=== PATIENT | male | born 1945 | race Hispanic/Latino ===

== ENCOUNTER 2018-11-11 09:46 | Observation (INO) | payer MEDICARE ==
[~2018-11-11] VITALS: Ht 172.7 cm; Wt 91.6 kg
[~2018-11-11 09:46] MED LIST: ASPIRIN CHEW81 MG PO; ATORVASTATIN CA20 MG PO; BACLOFEN10 MG PO; CLOPIDOGREL75 MG PO; CYMBALTA30 MG PO; DOXAZOSIN MESYLA2 MG PO; FUROSEMIDE40 MG PO; GABAPENTIN300 MG PO; METOPROLOL TART25 MG PO; POTASSIUM CHLO10 ME1 PO; SINEMET 25-1001 EACH PO
--- OUTSIDE RECORDS SUMMARY | 2018-11-11 09:48 | XMS REPORT ---
Author Author [facility] Address Unknown Phone Unavailable Care Team Providers Care [facility] Sharpshooter Name Role Phone JAMARCUS ORDOÑEZ Unavailable Unavailable Problems This patient has no known problems. Allergies, Adverse Reactions, Alerts This patient has no known allergies or adverse reactions. Medications This patient has no known medications. Results Test Description Test Time Test Comments Text Results Atomic Results Result Comments Stress Test - Treadmill ONLY [address] [address] Patient Name : RAFAEL MCCARTHY MR #: [id number] : 1945 Age/Sex: 71/M Adm Physician : JAMARCUS ORDOÑEZ MD Admit Date : 08/09/17 Location : MED/SURG Room/Bed : [facility] REPORT: Cardiology Report DATE OF STUDY: August 10, 2017 REFERRING PHYSICIAN: Dr. Jamarcus Ordoñez. LEXISCAN STRESS TEST PROCEDURE INDICATIONS: Chest pain. PROCEDURE SUMMARY: Resting Data: Heart rate is 79. Blood pressure 128/73. Resting EKG normal sinus rhythm, poor R-wave progression in precordial leads, left axis deviation. Stress Data: After Lexiscan was administered, heart rate w[place] to a peak of 118 beats per minute. Blood pressure decreased to 123/50. There were no significant ST changes or arrhythmias throughout stress or recovery. Myocardial perfusion reveals normal rest and stress perfusion. GATED images demonstrated hyperdynamic left ventricular systolic function. Normal regional wall motion. Left ventricular ejection fraction more than 70%. CONCLUSION 1. Normal hemodynamic response to Lexiscan stress. 2. Normal electrocardiographic resp onse to Lexiscan stress. 3. Normal myocardial perfusion at rest and stress. 4. Preserved hyperdynamic left ventricular systolic function with normal regional wall motion with left ventricular ejection fraction more than 70%. Job#: [id number] Signature Date Dictated By: TIAN BARNES MD Transcribed By: EDS on 08/10/17 <Electronically signed by TIAN BARNES MD><<Signature on File>>08/15/17 0919 COPY TO: CHEST SINGLE (PORTABLE) [place] [address] Patient Name: RAFAEL MCCARTHY MR #: [id number] : 1945 Age/Sex: 71/M Req #: [id number] Adm Physician: Ordered by: TIFFANIE CASEY MD Report #: [id number] Location: ER Room/Bed: Procedure: [id number] DX/CHEST SINGLE (PORTABLE) Exam Date: 08/09/17 Exam Time: 1005 REPORT STATUS: Signed PROCEDURE: A single AP view of the chest. COMPARISON: None. INDICATIONS: SHORTNESS OF BREATH. SUBSTERNAL CHEST PAIN/TIGHTNESS FINDINGS: Lines/tubes: None. Lungs: The lungs are well inflated and clear. There is no evidence of pneumonia or pulmonary edema. Pleura: There is no pleural effusion or pneumothorax. Heart and mediastinum: The heart and the mediastinum are unremarkable. Bones: No acute bony abnormality. Degenerative changes of the thoracic spine. IMPRESSION: No acute radiographic abnormality. Dictated by: Sarah Quarles M.D. on 08/09/2017 at 11:01 Electronically approved by: Sarah Quarles M.D. on 08/09/2017 at 11:01 Dictated By: SARAH QUARLES MD 00 Transcribed By: RODRIGO on 08/09/171100 COPY TO: TIFFANIE CASEY MD
[2018-11-11 10:30] LABS: INR 0.87; PROTHROMBIN TIME 12.7 seconds (11.9-14.5)
[2018-11-11 10:31] LABS: PARTIAL THROMBOPLASTIN TIME 22.4 seconds (23.8-35.5)
[2018-11-11 10:39] LABS: BILIRUBIN,URINE NEGATIVE (NEGATIVE); CLARITY,URINE CLEAR (CLEAR); COLOR,URINE YELLOW (YELLOW); KETONES,URINE NEGATIVE (NEGATIVE); LEUKOCYTE ESTERASE ,URINE NEGATIVE (NEGATIVE); NITRITE,URINE NEGATIVE (NEGATIVE); PROTEIN,URINE DIPSTICK NEGATIVE (NEGATIVE); URINE UROBILINOGEN 0.2 mg/dL (0.2 - 1)
[2018-11-11 10:41] LABS: ALBUMIN 3.8 g/dL (3.5-5.0); ALBUMIN/GLOBULIN RATIO 1.6 (0.8-2.0); ANION GAP 13.2 mmol/L (8-16); CALCIUM 8.8 mg/dL (8.4-10.2); CREATININE, SERUM 1.27 mg/dL (0.72-1.25); MAGNESIUM 2.6 MG/DL (1.3-2.1); POTASSIUM 4.2 mmol/L (3.5-5.1)
[2018-11-11 10:47] LABS: CREATINE KINASE MB 1.9 ng/mL (0-5.0)
--- NOTE | 2018-11-11 11:06 | Diagnostic Imaging Report ---
Examination: Single AP view of the chest. COMPARISON: Portable chest 08/09/2017 INDICATION: Syncope IMPRESSION: 1. Lines and Tubes: None 2. Lungs are hypoinflated. Patchy opacities in the retrocardiac region likely reflect atelectasis or aspiration. No consolidation. No pleural effusion.. 3. Prominent cardiac silhouette and central pulmonary venous crowding, likely due to low lung volumes. 4. No acute bony abnormalities. Signed by: Dr. Nick Soto M.D. on 11/11/2018 11:02 AM
--- NOTE | 2018-11-11 11:19 | Diagnostic Imaging Report ---
ADDENDUM #1 Vaguely hyperdense appearance of the inferior basilar artery and of a superficial left parietal vein is presumed to be artifactual. Coarse atherosclerotic calcifications are seen in the carotid siphons and intradural segments of the vertebral arteries. Nonemergent evaluation of the cervical and intracranial circulation is recommended if there is further need for imaging. Final report on 11/11/2018 at 1337 hours. Signed by: Dr. Oli Wilder M.D. on 11/11/2018 1:38 PM ORIGINAL REPORT Head CT without contrast History: 73-year-old male with syncopal episode at table, no trauma Comparison studies: None Technique: Axial images were obtained from the skull base to the vertex. Coronal and sagittal reconstructions obtained from the axial data. Dose modulation, iterative reconstruction, and/or weight based adjustment of the mA/kV was utilized to reduce the radiation dose to as low as reasonably achievable. Findings: Scalp/skull: No abnormalities. No fractures, blastic or lytic lesions. Extra-axial spaces: No masses. No fluid collections. Brain sulci: Appropriate for age. Ventricles: Normal in size and configuration. No hydrocephalus. Parenchyma: Scattered hypodensities in the supratentorial white matter are small vessel ischemic changes. No masses, hemorrhage, acute or chronic cortical vascular insults. Sellar/suprasellar region: No abnormalities Craniocervical junction: Patent foramen magnum. No Chiari one malformation. Vasculature: Short segment hyperdensity in the proximal one third of the basilar artery (image 6, series 2 and image 29, series 400). An additional hyperdensity is in a cortical vein in the left interparietal sulcus (image 24, series 2) Calcified atherosclerotic plaque in the carotid siphons and intradural segments of the vertebral arteries. Incidental: Multiple retention cysts in the maxillary sinuses. IMPRESSION: 1. No acute abnormalities. Specifically, no mass, hemorrhage or acute territorial vascular insult. 2. Short segment hyperdensity in the proximal basilar artery is likely due to artifact. If there is concern for posterior circulation occlusion, a CTA of the head could further evaluate this finding. 3. Hyperdensity in the left intraparietal sulcus could be due to cortical vein calcification or thrombus or possibly artifact. Preliminary report dictated by Dr. Kirstie Davison, Neuroradiology Fellow. A final report by the attending radiologist will follow. Signed by: Kristie Davison MD on 11/11/2018 11:16 AM
[2018-11-11 12:01] LABS: BASOPHILS # (AUTO) 0.1 (0.0-0.1); EOSINOPHILS # (AUTO) 0.1 (0.0-0.4); EOSINOPHILS % 2.5 % (0.0-6.0); HEMATOCRIT 38.9 % (38.2-49.6); HEMOGLOBIN 12.5 g/dL (14.0-18.0); LYMPHOCYTES % 19.4 % (18.0-39.1); MEAN CORPUSCULAR HGB CONC 32.1 g/dL (31-35); MEAN CORPUSCULAR VOLUME 93.5 fL (81-99); MONOCYTES # (AUTO) 0.5 (0.2-0.8); MONOCYTES % 9.1 % (4.4-11.3); NEUTROPHILS # (AUTO) 3.6 (2.1-6.9); NEUTROPHILS % 67.6 % (38.7-80.0); PLATELET COUNT 185 x10e3/uL (140-360); RED BLOOD COUNT 4.16 x10e6/uL (4.3-5.7); RED CELL DISTRIBUTION WIDTH 13.2 % (11.7-14.4)
[2018-11-11] MEDS ORDERED: ONDANSETRON HCL INJ 2 MG/ML VIAL IV PRN (12:30)
[2018-11-11 12:35] LABS: B-TYPE NATRIURETIC PEPTIDE2 55.8 pg/mL (0-100)
--- NOTE | 2018-11-11 15:04 | NUR ---
TELEMETRY BOX #[id number] APPLIED. NO SIGNS OF ACUTE DISTRESS NOTED AT THIS TIME.
--- NOTE | 2018-11-11 15:11 | NUR ---
pt arrived via stretcher from ER accompanied by daughter and . transferred to bed safely. patient states he understands some [place] but prefers [place]. denies pain at this time. Resp even and unlabored. oriented to room and use of call light. call light placed within reach and instructed to call for assistance. and daughter remain at bedside.
[2018-11-11 15:40] VITALS: BP 162/86
[2018-11-11] MEDS ORDERED: MIRTAZAPINE15 MG PO (15:47)
[2018-11-11] MEDS ORDERED: NORCO 10-325 T1 EACH PO (15:47)
[2018-11-11] MEDS ORDERED: GABAPENTIN300 MG PO (15:49)
[2018-11-11 16:19] VITALS: BP 162/86
[2018-11-11 16:23] VITALS: BP 162/86
[2018-11-11] MEDS: GABAPENTIN 300 MG CAP PO SCH (18:34)
[2018-11-11] MEDS: PANTOPRAZOLE SOD 40 MG TABEC PO SCH (18:35)
[2018-11-11] MEDS: METOPROLOL TARTRATE 25 MG TAB PO SCH (18:35)
[2018-11-11 20:00] VITALS: BP 117/66
[2018-11-11 20:49] VITALS: BP 117/76
[2018-11-11] MEDS: DOXAZOSIN MESYLATE 2 MG TAB PO SCH (21:00)
[2018-11-11] MEDS: CARBIDOPA/LEVODOPA 25/100 TAB PO SCH (21:00)
[2018-11-11] MEDS: MIRTAZAPINE 15 MG TAB PO SCH (21:00)
[2018-11-11] MEDS: ATORVASTATIN 20 MG TAB PO SCH (21:00)
[2018-11-12] VITALS (7 sets, daily range): BP systolic 111–147; BP diastolic 67–80
--- NOTE | 2018-11-12 01:20 | Consultation ---
DATE OF CONSULTATION: November 11, 2018 CARDIOLOGY CONSULTATION REASON FOR CONSULTATION: Syncope. HISTORY OF PRESENT ILLNESS: Mr. Blanca is a 73-year-old gentleman with past medical history of hypertension, hypercholesterolemia, moderate 1-vessel CAD on heart catheterization 6 years ago; chronic lower back pain, on pain medications; Parkinson disease; as well as depression and DUSTIN. Patient has been noted by his family to intermittently doze off shortly after sitting and it occurs multiple times a day and rather sporadically. He has been experiencing severe lower lumbar back pain and has had a recent adjustment in his home narcotic medication and upped his hydrocodone from 5 mg to 10 mg daily. He was in his usual state of health up until in the morning when he was sitting a table with his and then all of a sudden, he suddenly passed out with slumping of his head down to the table top surface and quickly came back to. According to the , he was out for a total of 3 to 5 seconds, had a little bit of mumbling and speech was a bit off, but then was back to normal. He denies any loss of bowel or bladder habit and was not noted to be twitching. According to the family, another family member noted that he was a little bit off in the evening with a little bit of unusual speech. He denies any focal weakness or numbness and has chronic lower extremity pain as well as some tingling in his legs, but nothing more so than normal. In my interview today, patient dozed off twice and came back to. Family insists that he did not slam his head on the table and in terms of probing about chest pain, patient does have a history of chest pain, intermittent substernal pressure associated with belching, moderate in nature. No known exacerbating or alleviating factors. In terms of coronary artery disease, known 50% disease in one of his arteries on heart a catheterization about 6 years ago, but denies any chest pain with this episode. A very long discussion today in terms of differential diagnosis with the family at bedside. PAST MEDICAL HISTORY 1. Hypertension, essential. 2. Hypercholesterolemia. 3. Coronary artery disease, moderate, one-vessel, diagnosed on a heart cath 6 years ago. 4. Lower back pain that is chronic. He is currently on pain medications. 5. Parkinson's disease. 6. Obstructive sleep apnea. 7. Depression. FAMILY HISTORY: Mother and father in their 80s. Denies any family history of coronary artery disease. SOCIAL HISTORY: He is a lifelong nonsmoker. Denies any alcohol or illicit drug use. ALLERGIES: NO KNOWN DRUG ALLERGIES. HOME MEDICATIONS: Include aspirin 81 mg daily, atorvastatin 40 mg at bedtime, Sinemet 25/100 mg 2 tablets t.i.d., Plavix 75 mg daily, doxazosin 8 mg q.h.s., gabapentin 600 mg b.i.d., [place] 10/325 mg q.6 hours p.r.n., metoprolol 25 mg b.i.d., and mirtazapine 15 mg q.h.s. REVIEW OF SYSTEMS GENERAL: Denies any fevers, chills, or any weight changes. HEENT: No headaches, visual complaints, sore throat, or stuffy nose. RESPIRATORY: Denies any pleuritic chest pain. Has mild exertional dyspnea. CARDIOVASCULAR: Chest pain as per HPI. Passing out episode. Denies any subjective palpitations. Syncopal episode as above. GI: Denies any abdominal pain, bright red blood per rectum, melena, or hematemesis. Has occasional belching. : Denies any dysuria. Positive for urinary frequency and nocturia. MUSCULOSKELETAL: Positive for severe lower back pain, radiating down to his legs. SKIN: No rashes. NEUROLOGIC: Slightly decreased coordination and difficulty walking, kind of leg pain and has some slight leg weakness that is symmetric and does have some tremors at times due to Parkinson's disease. Remainder of review of systems is negative for otherwise mentioned. PHYSICAL EXAMINATION VITAL SIGNS: Height of 68 inches, weight of 202 pounds, BMI is 30.7, temperature of 96.7, pulse of 72, respiratory rate 18, blood pressure 162/86, and O2 sat 98% on room air. GENERAL: This is a well-nourished, well-developed gentleman, who is currently in no apparent distress, noted to be dozing off twice during my visit. HEENT: Normocephalic, atraumatic. Pupils equal, round, and reactive to light. Extraocular movements are intact. Oropharynx is clear. NECK: No elevation of jugular venous pulsation. No carotid bruits. CARDIOVASCULAR: Regular rate and rhythm. Normal S1 and S2. Soft 2/6 systolic murmur at the left lower sternal border. LUNGS: Largely clear to auscultation bilaterally. ABDOMEN: Soft, nontender, and nondistended. Normoactive bowel sounds. No hepatomegaly. BACK: No costovertebral angle tenderness. There is mild lower lumbar discomfort to palpation. EXTREMITIES: Warm with 2+ bilateral radial pulses, 1 to 2+ bilateral femoral pulses, and 1+ pedal pulses. NEUROLOGIC: Somnolent, but cranial nerves II through XII are intact. Strength is 5/5 in the upper extremities and 5-/5 in the lower extremities, but appears nonfocal, slight tremor. There is no edema. The remainder of the exam is negative for otherwise mentioned. LABS: White count 5.3, hemoglobin 12.5, hematocrit 38.9, and platelets of 185. Sodium 139, potassium 4.2, chloride 106, bicarb 24, BUN 17, creatinine 1.27, glucose of 120, and lactate 13. Calcium 8.8, magnesium 2.6, AST 23, ALT 7, alk phos 120, total protein of 6.2, albumin of 3.8, and troponin of 0.002. BNP is 55.8. INR is 0.87. UA is unremarkable. EKG reveals sinus rhythm. Left anterior fascicular block, delayed RS with transition. Brain CT reveals no acute abnormalities. There is a short segment of hyperdensity in the proximal basilar artery, likely artifact. There is questionable cortical vein calcification. Chest x-ray shows hyperinflated lungs. No acute bony abnormalities. DIAGNOSES 1. Episode of syncope with wide differential diagnosis. 2. Hypertension, essential. 3. Hypercholesterolemia. 4. Moderate coronary artery disease with chest pain. 5. Chronic low back pain, on pain medications. 6. Obstructive sleep apnea. 7. Parkinson's disease. PLAN/RECOMMENDATIONS 1. From a cardiovascular standpoint, we will go ahead and check an echocardiogram to evaluate structurally. Monitor him on telemetry and check carotid Duplex to see if there are any vascular issues in his neck. 2. We will go ahead and proceed with ischemic risk stratification with a stress test in light of chest pain symptoms. 3. We will continue antiplatelet therapy. 4. Perhaps, we will need consideration of minimizing narcotic therapy. 5. We will continue to monitor this patient. Thank you for this referral. Job#: [id number] MARILYN
[2018-11-12] MEDS: GABAPENTIN 300 MG CAP PO SCH ×2 (04:30→15:05)
[2018-11-12 05:09] LABS: BASOPHILS % 0.7 % (0.0-1.0); EOSINOPHILS # (AUTO) 0.2 (0.0-0.4); EOSINOPHILS % 2.6 % (0.0-6.0); HEMATOCRIT 38.8 % (38.2-49.6); HEMOGLOBIN 12.9 g/dL (14.0-18.0); LYMPHOCYTES # (AUTO) 1.9 (1.0-3.2); LYMPHOCYTES % 32.9 % (18.0-39.1); MEAN CORPUSCULAR HEMOGLOBIN 30.4 pg (28-32); MEAN CORPUSCULAR HGB CONC 33.2 g/dL (31-35); MEAN CORPUSCULAR VOLUME 91.3 fL (81-99); MONOCYTES # (AUTO) 0.6 (0.2-0.8); MONOCYTES % 9.5 % (4.4-11.3); NEUTROPHILS # (AUTO) 3.1 (2.1-6.9); PLATELET COUNT 188 x10e3/uL (140-360); RED BLOOD COUNT 4.25 x10e6/uL (4.3-5.7); RED CELL DISTRIBUTION WIDTH 13.4 % (11.7-14.4)
[2018-11-12 05:27] LABS: ANION GAP 12.2 mmol/L (8-16); BLOOD UREA NITROGEN 16 mg/dL (7-26); BUN/CREATININE RATIO 15 (6-25); CALCIUM 8.9 mg/dL (8.4-10.2); CARBON DIOXIDE 25 mmol/L (22-29); CHLORIDE 107 mmol/L (98-107); CHOL/HDL RATIO 2.7 (3.9-4.7); CHOLESTEROL 85 MD/DL (0-199); CREATININE, SERUM 1.04 mg/dL (0.72-1.25); EST GLOMERULAR FILTRATION RATE > 60 ML/MIN (60-); GLUCOSE 90 mg/dL (74-118); HDL CHOLESTEROL 31 MG/DL (40-60); LDL CHOLESTEROL 41 MG/DL (60-130); POTASSIUM 4.2 mmol/L (3.5-5.1); SODIUM 140 mmol/L (136-145); TRIGLYCERIDES 65 MG/DL (0-149)
[2018-11-12 05:33] LABS: MAGNESIUM 2.3 MG/DL (1.3-2.1)
[2018-11-12 05:43] LABS: CREATINE KINASE 125 IU/L (30-200)
[2018-11-12 05:59] LABS: THYROID STIMULATING HORMONE 1.899 uIU/mL (0.350-4.940)
--- NOTE | 2018-11-12 07:15 | NUR ---
received pt lying in bed with eyes closed, Resp even and unlabored. patient was awoken to remind him of NPO status due to procedures scheduled for today and verbalized understanding. denies pain at time. call light within reach. instructed to call for assistance.
[2018-11-12] MEDS: PANTOPRAZOLE SOD 40 MG TABEC PO SCH (07:30)
[2018-11-12] MEDS: METOPROLOL TARTRATE 25 MG TAB PO SCH ×2 (08:43→17:06)
[2018-11-12] MEDS: ASPIRIN 81 MG CHEW TAB PO SCH (08:43)
[2018-11-12] MEDS: CLOPIDOGREL BISULFATE 75 MG TAB PO SCH (08:44)
[2018-11-12] MEDS: CARBIDOPA/LEVODOPA 25/100 TAB PO SCH ×3 (08:44→21:01)
[2018-11-12] MEDS ORDERED: REGADENOSON 0.4 MG/5 ML SYR IV ONE (10:33)
[2018-11-12] MEDS ORDERED: SODIUM CHLORIDE 0.9% 100 ML 100 ML ONE (14:29)
[2018-11-12] MEDS ORDERED: IOPAMIDOL 370 MG/ML 200 ML INFUS..BTL INJ ONE ×2 (14:29→14:30)
[2018-11-12] MEDS: HYDROCODONE/APAP 7.5MG-325MG 1 EA TAB PO PRN (15:04)
--- NOTE | 2018-11-12 16:33 | Diagnostic Imaging Report ---
CTA NECK, CTA BRAIN HISTORY: Concern for basilar insufficiency COMPARISON: Head CT 11/11/2018 TECHNIQUE: CTA of the head and neck was performed with intravenous iodine based contrast. Coronal, sagittal, coronal, 3-D, and oblique maximum intensity projection reformations were created. One or more of the following dose reduction techniques were used: Automated exposure control, adjustment of the mA and/or kV according to patient size, and/or utilization of iterative reconstruction technique. 100 mL of Isovue-370 were administered. DISCUSSION: If present, any cervical carotid stenosis will be measured as a percentage relative to the alt[place] artery distal to the stenosis. CERVICAL CTA: There are mild calcifications in the aortic arch and proximal great vessels. Right Carotid: Mild to moderate calcified plaque at the right carotid bulb does not cause significant stenosis. Left Carotid: Mild to moderate calcified plaque at the left carotid bulb does not cause significant stenosis. Right vertebral artery: Mild calcification at the right vertebral artery ostium causes mild focal stenosis. Otherwise, patent and without abnormality. Left vertebral artery: Calcification at the left vertebral artery ostium causes moderate focal stenosis. Otherwise, patent and without abnormality. INTRACRANIAL CTA: Carotid arteries: Bilateral carotid siphon calcifications are present without significant stenosis. No abnormalities in the A1 or M1 segments. Vertebrobasilar Circulation: Right vertebral artery: Minimal right intradural vertebral artery calcification without significant stenosis. Left vertebral artery: Focal calcified plaque in the left intradural vertebral artery causes at least mild to moderate focal stenosis. Basilar artery: Patent, no abnormalities. Posterior cerebral arteries: Patent, no abnormalities. Normal Variants: ACom: Patent. PComs: Not visualized. Vertebral arteries: Co-dominant. The major dural venous sinuses are grossly patent. Additional findings: Both ocular lenses are thinned. The submandibular glands appear atrophic. There are prominent degenerative changes throughout the spine. Bilateral maxillary sinus retention cysts are present. IMPRESSION: 1. Moderate left and mild right focal vertebral artery ostia stenoses(due to calcifications). 2. Mild to moderate bilateral carotid bulb calcified plaque without significant stenosis. 3. Bilateral carotid siphon calcifications without significant stenosis. 4. Mild to moderate focal stenosis in the left vertebral artery V4 segment due to calcification. Minimal right intradural vertebral artery calcification without significant stenosis. 5. No other cervical or intracranial CTA abnormalities. Signed by: Dr. Nithin Sykes M.D. on 11/12/2018 3:29 PM
[2018-11-12] MEDS: DOXAZOSIN MESYLATE 2 MG TAB PO SCH (21:01)
[2018-11-12] MEDS: ATORVASTATIN 20 MG TAB PO SCH (21:01)
[2018-11-12] MEDS: MIRTAZAPINE 15 MG TAB PO SCH (21:01)
[2018-11-13 01:34] VITALS: BP 146/78
[2018-11-13] MEDS: GABAPENTIN 300 MG CAP PO SCH (04:52)
[2018-11-13 05:08] LABS: ANION GAP 12.1 mmol/L (8-16); BLOOD UREA NITROGEN 16 mg/dL (7-26); BUN/CREATININE RATIO 14 (6-25); CALCIUM 8.5 mg/dL (8.4-10.2); CARBON DIOXIDE 26 mmol/L (22-29); CHLORIDE 104 mmol/L (98-107); CREATININE, SERUM 1.14 mg/dL (0.72-1.25); EST GLOMERULAR FILTRATION RATE > 60 ML/MIN (60-); GLUCOSE 87 mg/dL (74-118); POTASSIUM 4.1 mmol/L (3.5-5.1); SODIUM 138 mmol/L (136-145)
[2018-11-13] MEDS: HYDROCODONE/APAP 7.5MG-325MG 1 EA TAB PO PRN (05:46)
[2018-11-13 07:05] VITALS: BP 141/66
[2018-11-13 07:09] VITALS: BP 155/79
[2018-11-13] MEDS: CLOPIDOGREL BISULFATE 75 MG TAB PO SCH (09:03)
[2018-11-13] MEDS: PANTOPRAZOLE SOD 40 MG TABEC PO SCH (09:03)
[2018-11-13] MEDS: ASPIRIN 81 MG CHEW TAB PO SCH (09:03)
[2018-11-13] MEDS: CARBIDOPA/LEVODOPA 25/100 TAB PO SCH (09:03)
[2018-11-13] MEDS: METOPROLOL TARTRATE 25 MG TAB PO SCH (09:03)
[2018-11-13 09:36] VITALS: BP 141/66
--- NOTE | 2018-11-13 11:37 | Discharge Summary ---
PRIMARY CARE DOCTOR: Dr. Ervin Maldonado with [facility]. FINAL DIAGNOSIS: Syncope. SECONDARY DIAGNOSES 1. Atypical chest pain. 2. Parkinson disease. 3. Hypertension. 4. Chronic back pain. CONSULTANTS: Dr. Ferreira, cardiology. PROCEDURES/STUDIES PERFORMED 1. Stress test. 2. Echocardiogram. 3. Head and neck CTA. 4. Head CT. HISTORY: Per H&P. HOSPITAL COURSE: There was some suspicion for arrhythmia. Patient was on telemetry for 48 hours. There were no events. We have suggested a loop recorder with the patient; however, he would prefer to follow up with his own permit specialist, Dr. Yao. Given his chest pain, a stress test was done. There was some questionable reversible ischemia; however, we do not think that this is a reason for his syncope. Again, patient would prefer to follow up with his own permit specialist instead of follow up with left heart cath at this time. Potentially this could be due to an increase in his narcotic; therefore, we have suggested for patient to go back to his [place] 5 mg. I will also relay this to his primary care doctor. Patient was seen and examined today. CONDITION ON DISCHARGE: Stable. DISCHARGE MEDICATIONS: Please see above medication reconciliation form. MODESTA CABALLERO M.D. Job#: [id number] TA cc:DR. ERVIN MALDONADO
== END 2018-11-13 11:40 | disposition home or self-care (01) ==
LOC: ER 09:46 → ERHOLD 12:27 → MED/SURG2 15:26
PROVIDERS: ADMIT Internal Medicine; ATTEND Internal Medicine
DX: R55 Syncope and collapse (principal); R07.89 Other chest pain; G20 Parkinson's disease; I25.10 Atherosclerotic heart disease of native coronary artery without angina pectoris; M54.9 Dorsalgia, unspecified; K21.9 Gastro-esophageal reflux disease without esophagitis; I10 Essential (primary) hypertension; E78.00 Pure hypercholesterolemia, unspecified; M54.5 Low back pain; G47.33 Obstructive sleep apnea (adult) (pediatric)
CPT/HCPCS: 36415 ×3; 70450; 70496; 70498; 71045; 78452; 80048 ×2; 80053; 80061; 81001; 82550 ×2; 82553 ×2; 83605; 83735 ×2; 83880; 84443; 84484 ×2; 85025 ×2; 85610; 85730; 87040; 87086; 93005; 93017; 93306; 99284; A9502; G0378 ×3; J2785; Q9967; S0164 ×2

== ENCOUNTER 2019-01-18 11:10 | Observation (INO) | payer MEDICARE ==
[~2019-01-18] VITALS: Ht 172.7 cm; Wt 91.6 kg
[~2019-01-18 11:10] MED LIST changes: +MIRTAZAPINE15 MG PO; +NORCO 10-325 T1 EACH PO
[2019-01-18] MEDS ORDERED: ASPIRIN 81 MG CHEW TAB PO STA (12:01)
[2019-01-18] MEDS ORDERED: ASPIRIN 81 MG CHEW TAB PO ONE ×2 (12:15→13:45)
[2019-01-18 12:33] LABS: BASOPHILS % 0.7 % (0.0-1.0); EOSINOPHILS # (AUTO) 0.1 (0.0-0.4); EOSINOPHILS % 0.9 % (0.0-6.0); HEMATOCRIT 40.5 % (38.2-49.6); HEMOGLOBIN 13.1 g/dL (14.0-18.0); LYMPHOCYTES % 16.9 % (18.0-39.1); MEAN CORPUSCULAR HEMOGLOBIN 29.8 pg (28-32); MEAN CORPUSCULAR HGB CONC 32.3 g/dL (31-35); MONOCYTES # (AUTO) 0.5 (0.2-0.8); MONOCYTES % 9.3 % (4.4-11.3); NEUTROPHILS # (AUTO) 4.2 (2.1-6.9); NEUTROPHILS % 72.2 % (38.7-80.0); PLATELET COUNT 175 x10e3/uL (140-360); RED CELL DISTRIBUTION WIDTH 13.6 % (11.7-14.4)
[2019-01-18 12:38] LABS: INR 0.92; PROTHROMBIN TIME 12.9 seconds (11.9-14.5)
[2019-01-18 12:39] LABS: PARTIAL THROMBOPLASTIN TIME 34.3 seconds (23.8-35.5)
[2019-01-18 12:46] LABS: ALANINE AMINOTRANSFERASE 6 IU/L (0-55); ALBUMIN 3.7 g/dL (3.5-5.0); ALBUMIN/GLOBULIN RATIO 1.3 (0.8-2.0); ALKALINE PHOSPHATASE 91 IU/L (40-150); ANION GAP 11.4 mmol/L (8-16); BLOOD UREA NITROGEN 25 mg/dL (7-26); BUN/CREATININE RATIO 22 (6-25); CALCIUM 9.4 mg/dL (8.4-10.2); CARBON DIOXIDE 27 mmol/L (22-29); CHLORIDE 102 mmol/L (98-107); CREATINE KINASE 102 IU/L (30-200); CREATININE, SERUM 1.12 mg/dL (0.72-1.25); EST GLOMERULAR FILTRATION RATE > 60 ML/MIN (60-); GLUCOSE 107 mg/dL (74-118); POTASSIUM 4.4 mmol/L (3.5-5.1); SODIUM 136 mmol/L (136-145)
[2019-01-18 12:58] LABS: CLARITY,URINE HAZY (CLEAR); COLOR,URINE YELLOW (YELLOW)
[2019-01-18 12:59] LABS: BACTERIA,URINE MANY /HPF; BILIRUBIN,URINE NEGATIVE (NEGATIVE); EPITHELIAL CELLS,URINE MODERATE /LPF; KETONES,URINE NEGATIVE (NEGATIVE); LEUKOCYTE ESTERASE ,URINE NEGATIVE (NEGATIVE); NITRITE,URINE NEGATIVE (NEGATIVE); PROTEIN,URINE DIPSTICK NEGATIVE (NEGATIVE); RBC,URINE 0-5 /HPF (0-5); URINE UROBILINOGEN 0.2 mg/dL (0.2 - 1); WBC,URINE (MAN) 0-5 /HPF (0-5)
[2019-01-18 13:00] LABS: AMORPHOUS SEDIMENT,URINE FEW (FEW)
--- NOTE | 2019-01-18 13:09 | Diagnostic Imaging Report ---
EXAM: CHEST SINGLE (PORTABLE) DATE: 01/18/2019 12:01 PM INDICATION: Chest pain COMPARISON: Chest x-ray, 11/11/2018 FINDINGS: Lines and tubes: None Heart size normal. No focal pulmonary opacity, pleural effusion or pneumothorax. Upper abdomen unremarkable. No acute bony abnormality. IMPRESSION: No evidence for acute disease. Signed by: Dr. Guicho Barney M.D. on 01/18/2019 1:06 PM
[2019-01-18] MEDS ORDERED: NITROGLYCERIN 0.4 MG SUBL SL PRN (13:45)
[2019-01-18] MEDS ORDERED: SODIUM CHLORIDE 0.9% 1000ML 1,000 ML IV SCH ×2 (13:45→15:30)
[2019-01-18] MEDS ORDERED: MORPHINE SULFATE 2 MG/ML SYR 1ML IV PRN (13:45)
[2019-01-18] MEDS ORDERED: FAMOTIDINE 20 MG TAB PO SCH (13:45)
[2019-01-18] MEDS ORDERED: ENOXAPARIN SODIUM INJ 100 MG/ML SYR SC SCH (13:45)
[2019-01-18] MEDS ORDERED: ONDANSETRON HCL INJ 2MG/ML 2ML 2 MG/ML VIAL IV PRN (13:45)
[2019-01-18] MEDS ORDERED: MORPHINE SULFATE INJ 4 MG/ML INJ 1ML IV PRN (14:15)
[2019-01-18] MEDS ORDERED: HYDROCODONE/APAP 5MG-325MG TAB PO PRN (14:15)
[2019-01-18] MEDS ORDERED: HYDROCODONE/APAP 5MG-325MG TAB PO ONE (14:15)
[2019-01-18] MEDS ORDERED: GABAPENTIN 300 MG CAP PO SCH (15:00)
[2019-01-18] MEDS ORDERED: CARBIDOPA/LEVODOPA 25/100 TAB PO SCH (15:00)
--- NOTE | 2019-01-18 15:35 | NUR ---
[facility] CALLED FOR TRANSPORT; HS @ ER TO [facility]ISH [facility]
--- NOTE | 2019-01-18 15:42 | NUR ---
DR LOUIS AWARE TRANSFER ACCEPTED
--- NOTE | 2019-01-18 16:26 | NUR ---
REPORT TO ARIANE IN INVOICE CLASSIFICATION CLERK AT [facility]; REPORT TO EMS; NOTIFIED DR LOUIS OF PT ARRIVAL PER REQUEST OF .
[2019-01-18 16:29] VITALS: BP 139/77
--- NOTE | 2019-01-18 16:31 | NUR ---
DR LOUIS TRNSFERED PT TO [facility] DIRECTLY TO [employer]
[2019-01-18] MEDS ORDERED: METOPROLOL TARTRATE 25 MG TAB PO SCH (17:00)
[2019-01-18] MEDS ORDERED: NITROGLYCERIN 2% OINT 1 GM PKT TOP SCH (18:00)
[2019-01-18] MEDS ORDERED: ATORVASTATIN 20 MG TAB PO SCH (21:00)
[2019-01-18] MEDS ORDERED: MIRTAZAPINE 15 MG TAB PO SCH (21:00)
[2019-01-19] MEDS ORDERED: CLOPIDOGREL BISULFATE 75 MG TAB PO SCH (09:00)
[2019-01-19] MEDS ORDERED: ASPIRIN 81 MG ENTERIC COATED PO SCH (09:00)
== END 2019-01-18 16:32 | disposition other institution (70) ==
LOC: ER 11:10 → ERHOLD 14:28
PROVIDERS: ADMIT Internal Medicine; ATTEND Internal Medicine
DX: I25.110 Atherosclerotic heart disease of native coronary artery with unstable angina pectoris (principal); R07.9 Chest pain, unspecified; I10 Essential (primary) hypertension; E78.5 Hyperlipidemia, unspecified; G20 Parkinson's disease; M54.9 Dorsalgia, unspecified
CPT/HCPCS: 36415; 71045; 80053; 81001; 82550; 82553; 83880; 84484; 85025; 85610; 85730; 93005; 99284; G0378; J7030

== ENCOUNTER 2019-05-17 20:47 | Emergency (ER) | payer MEDICARE ==
[~2019-05-17] VITALS: Ht 172.7 cm; Wt 91.6 kg
[2019-05-17 21:16] VITALS: BP 161/90
== END 2019-05-17 21:21 | disposition home or self-care (01) ==
LOC: ER 20:47
DX: I10 Essential (primary) hypertension (principal)
CPT/HCPCS: 99282

== ENCOUNTER 2022-07-14 00:15 | Inpatient (IN) | payer MEDICARE ==
[2022-07-14] VITALS (27 sets, daily range): BP systolic 89–157; BP diastolic 44–82
[~2022-07-14] VITALS: Ht 172.7 cm; Wt 67.1 kg
[2022-07-14] MEDS ORDERED: ONDANSETRON HCL INJ 2MG/ML 2ML 2 MG/ML VIAL IV STA (00:28)
[2022-07-14] MEDS ORDERED: SODIUM CHLORIDE 0.9% 1000ML 1,000 ML IV ONE (00:30)
[2022-07-14] MEDS ORDERED: Morphine 4mg INJECTION 4 MG/ML INJ IV ONE (00:30)
[2022-07-14] MEDS ORDERED: SODIUM CHLORIDE 0.9% 1000ML 2,250 ML IV ONE (00:45)
[2022-07-14 00:52] LABS: ABG PCO2 27 mmHg (35-45)
[2022-07-14 00:53] LABS: ABG HCO3 11 mmol/L (22-26); ABG PO2 81 mmHg (80-105); ABG TCO2 11
[2022-07-14 01:02] LABS: BASOPHILS % 0.1 % (0.0-1.0); HEMATOCRIT 43.1 % (38.2-49.6); HEMOGLOBIN 13.3 g/dL (14.0-18.0); LYMPHOCYTES # (AUTO) 0.7 (1.0-3.2); LYMPHOCYTES % 4.7 % (18.0-39.1); MEAN CORPUSCULAR HEMOGLOBIN 30.9 pg (28-32); MEAN CORPUSCULAR HGB CONC 30.9 g/dL (31-35); MONOCYTES # (AUTO) 0.8 (0.2-0.8); MONOCYTES % 5.4 % (4.4-11.3); NEUTROPHILS # (AUTO) 12.7 (2.1-6.9); NEUTROPHILS % 89.5 % (38.7-80.0); PLATELET COUNT 272 x10e3/uL (140-360); RED BLOOD COUNT 4.31 x10e6/uL (4.3-5.7); RED CELL DISTRIBUTION WIDTH 13.2 % (11.7-14.4)
[2022-07-14 01:06] LABS: CLARITY,URINE CLEAR (CLEAR); COLOR,URINE AMBER (YELLOW); KETONES,URINE TRACE (NEGATIVE); LEUKOCYTE ESTERASE ,URINE NEGATIVE (NEGATIVE); NITRITE,URINE NEGATIVE (NEGATIVE); PROTEIN,URINE DIPSTICK TRACE (NEGATIVE); URINE UROBILINOGEN 0.2 mg/dL (0.2 - 1)
[2022-07-14 01:09] LABS: BACTERIA,URINE FEW /HPF; EPITHELIAL CELLS,URINE RARE /LPF; MUCUS,URINE FEW (RARE); RBC,URINE 0-5 /HPF (0-5)
[2022-07-14 01:18] LABS: SALICYLATE < 5.0 mg/dL (0-30)
[2022-07-14 01:21] LABS: ALBUMIN 3.8 g/dL (3.5-5.0); ALBUMIN/GLOBULIN RATIO 1.5 (0.8-2.0); ANION GAP 23.4 mmol/L (8-16); CALCIUM 8.8 mg/dL (8.4-10.2); CREATININE, SERUM 2.24 mg/dL (0.72-1.25); POTASSIUM 4.4 mmol/L (3.5-5.1)
[2022-07-14] MEDS ORDERED: NOREPINEPHRINE 8 MG/D5W 250 ML 250 ML ONE (02:33)
[2022-07-14] MEDS ORDERED: NOREPINEPHRINE 8 MG/D5W 250 ML 250 ML IV SCH ×2 (02:45→16:30)
[2022-07-14 02:51] LABS: INR 1.2; PARTIAL THROMBOPLASTIN TIME 36.6 seconds (23.8-35.5); PROTHROMBIN TIME 16.3 seconds (11.9-14.5)
[2022-07-14] MEDS ORDERED: SODIUM BICARBONATE 8.4% INJ 50 ML SYR IV STA ×2 (03:49→20:16)
[2022-07-14] MEDS ORDERED: METRONIDAZOLE 500MG/NS 100ML 100 ML IV STA (04:16)
[2022-07-14] MEDS ORDERED: SODIUM CHLORIDE 0.9% 500ML 500 ML ONE (04:43)
[2022-07-14] MEDS ORDERED: SODIUM CHLORIDE 0.9% 1000ML 1,000 ML IV SCH ×2 (05:30→09:45)
[2022-07-14] MEDS ORDERED: HEPARIN SOD/SOD CHLORIDE 1,000 ML ONE (06:13)
[2022-07-14] MEDS ORDERED: SODIUM CHLORIDE 0.9% 250ML 0 ML ONE (07:17)
[2022-07-14] MEDS ORDERED: SODIUM CHLORIDE 0.9% 250ML 250 ML ONE (07:30)
[2022-07-14 08:07] LABS: ABG PCO2 47 mmHg (35-45); ABG PH 7.05 (7.35-7.45)
[2022-07-14 08:08] LABS: ABG HCO3 13 mmol/L (22-26); ABG PO2 259 mmHg (80-105); ABG TCO2 14
[2022-07-14 08:22] LABS: ABG HCO3 16 mmol/L (22-26); ABG PCO2 37 mmHg (35-45); ABG PH 7.24 (7.35-7.45); ABG PO2 332 mmHg (80-105); ABG TCO2 17
[2022-07-14] MEDS ORDERED: HYDROMORPHONE 1MG/1ML INJ IV PRN (09:45)
[2022-07-14] MEDS ORDERED: SODIUM CHLORIDE 0.9% 250ML IRRIG IR SCH (09:45)
[2022-07-14] MEDS ORDERED: ETOMIDATE 2 MG/ML 10 ML INJ IV ONE (11:16)
[2022-07-14] MEDS ORDERED: SEVOFLURANE INHAL SOLN 250 ML PEN BTL ONE (11:16)
[2022-07-14] MEDS ORDERED: SUCCINYLCHOLINE CHLORIDE 20 MG/ML 10ML VIAL ONE (11:16)
[2022-07-14] MEDS ORDERED: VASOPRESSIN INJ 20 UNIT/ML VIAL ONE (11:16)
[2022-07-14] MEDS ORDERED: POVIDONE IODINE 0.05% 0.05 % ML PO ONE (11:16)
[2022-07-14] MEDS ORDERED: ROCURONIUM BROMIDE 10 MG/ML 5ML VIAL IV ONE (11:16)
[2022-07-14 11:54] LABS: BASOPHILS % 0.8 % (0.0-1.0); HEMATOCRIT 31.7 % (38.2-49.6); HEMOGLOBIN 9.7 g/dL (14.0-18.0); LYMPHOCYTES # (AUTO) 0.2 (1.0-3.2); LYMPHOCYTES % 6.1 % (18.0-39.1); MEAN CORPUSCULAR HGB CONC 30.6 g/dL (31-35); MEAN CORPUSCULAR VOLUME 98.1 fL (81-99); MONOCYTES # (AUTO) 0.2 (0.2-0.8); MONOCYTES % 5.8 % (4.4-11.3); NEUTROPHILS # (AUTO) 3.4 (2.1-6.9); NEUTROPHILS % 87.3 % (38.7-80.0); PLATELET COUNT 119 x10e3/uL (140-360); RED BLOOD COUNT 3.23 x10e6/uL (4.3-5.7); RED CELL DISTRIBUTION WIDTH 13.6 % (11.7-14.4)
[2022-07-14] MEDS: SODIUM CHLORIDE 0.9% 1000ML 1,000 ML IV SCH ×3 (11:58→16:50)
[2022-07-14] MEDS ORDERED: SODIUM BICARBONATE 8.4% INJ 50 ML SYR IV ONE (12:00)
[2022-07-14] MEDS ORDERED: FLUCONAZOLE 200 MG/100 ML 100 ML IV ONE (12:00)
[2022-07-14] MEDS: SODIUM BICARBONATE 8.4% 150 ML in DEXTROSE 5% 1,000 ML IV SCH ×2 (12:04→18:36)
[2022-07-14] MEDS ORDERED: Vancomycin IV 1 GM in SODIUM CHLORIDE 0.9% 250ML 250 ML IV ONE ×2 (12:15→14:15)
[2022-07-14 12:19] LABS: INR 2.78; PROTHROMBIN TIME 31.3 seconds (11.9-14.5)
[2022-07-14 12:20] LABS: PARTIAL THROMBOPLASTIN TIME 67.2 seconds (23.8-35.5)
[2022-07-14] MEDS: METRONIDAZOLE 500MG/NS 100ML 100 ML IV SCH ×3 (12:36→23:38)
[2022-07-14 13:36] LABS: BAND NEUTROPHILS % (MANUAL) 13 %; LYMPHOCYTES % (MANUAL) 5 % (19-48); METAMYELOCYTES % (MANUAL) 1 % (0-0); MONOCYTES % (MANUAL) 7 % (3.4-9.0); MYELOCYTES % (MANUAL) 2 % (0-0); NEUTROPHILS % (MANUAL) 72 % (40-74); PLATELET ESTIMATE SLIGHTLY DECREASED; PLATELET MORPHOLOGY COMMENT NORMAL; RBC MORPHOLOGY COMMENT NORMAL
[2022-07-14 13:43] LABS: ABG HCO3 16 mmol/L (22-26); ABG PCO2 35 mmHg (35-45); ABG PH 7.27 (7.35-7.45); ABG PO2 128 mmHg (80-105); ABG TCO2 17
[2022-07-14] MEDS ORDERED: MIDAZOLAM HCL 5 MG/ML VIAL ONE (13:50)
[2022-07-14] MEDS ORDERED: MIDAZOLAM HCL 2 MG/2 ML VIAL ONE (13:50)
[2022-07-14] MEDS: SODIUM CHLORIDE 0.9% 250ML IRRIG IR SCH ×3 (14:52→22:01)
[2022-07-14] MEDS: NOREPINEPHRINE 8 MG/D5W 250 ML 250 ML IV SCH (17:17)
[2022-07-14] MEDS ORDERED: BUMETANIDE 1 MG TAB PO ONE (20:00)
[2022-07-14] MEDS ORDERED: BUMETANIDE INJ 0.25MG/ML 4ML VIAL IV ONE (20:15)
[2022-07-14 21:07] LABS: ABG HCO3 18 mmol/L (22-26); ABG PCO2 29 mmHg (35-45); ABG PH 7.41 (7.35-7.45); ABG PO2 162 mmHg (80-105); ABG TCO2 19
[2022-07-15] VITALS (84 sets, daily range): BP systolic 72–170; BP diastolic 38–113
[2022-07-15 00:02] LABS: ABG HCO3 22 mmol/L (22-26); ABG PCO2 30 mmHg (35-45); ABG PH 7.48 (7.35-7.45); ABG PO2 151 mmHg (80-105); ABG TCO2 23
[2022-07-15] MEDS: SODIUM BICARBONATE 8.4% 150 ML in DEXTROSE 5% 1,000 ML IV SCH ×2 (00:50→08:31)
[2022-07-15] MEDS: SODIUM CHLORIDE 0.9% 250ML IRRIG IR SCH ×6 (03:05→22:12)
[2022-07-15] MEDS: PROPOFOL IV EMULSION 10MG/ML 100 ML IV PRN ×4 (04:18→23:56)
[2022-07-15] MEDS: METRONIDAZOLE 500MG/NS 100ML 100 ML IV SCH ×4 (05:18→23:55)
[2022-07-15 06:57] LABS: BASOPHILS % 0.1 % (0.0-1.0); HEMATOCRIT 27.5 % (38.2-49.6); HEMOGLOBIN 9.3 g/dL (14.0-18.0); LYMPHOCYTES # (AUTO) 0.4 (1.0-3.2); LYMPHOCYTES % 5.1 % (18.0-39.1); MEAN CORPUSCULAR HEMOGLOBIN 30.6 pg (28-32); MEAN CORPUSCULAR HGB CONC 33.8 g/dL (31-35); MEAN CORPUSCULAR VOLUME 90.5 fL (81-99); MONOCYTES # (AUTO) 0.3 (0.2-0.8); MONOCYTES % 4.3 % (4.4-11.3); NEUTROPHILS # (AUTO) 6.8 (2.1-6.9); NEUTROPHILS % 90.1 % (38.7-80.0); PLATELET COUNT 131 x10e3/uL (140-360); RED BLOOD COUNT 3.04 x10e6/uL (4.3-5.7); RED CELL DISTRIBUTION WIDTH 13.4 % (11.7-14.4)
[2022-07-15 07:09] LABS: INR 3.14; PROTHROMBIN TIME 34.5 seconds (11.9-14.5)
[2022-07-15 07:56] LABS: BAND NEUTROPHILS % (MANUAL) 16 %; LYMPHOCYTES % (MANUAL) 8 % (19-48); MONOCYTES % (MANUAL) 6 % (3.4-9.0); NEUTROPHILS % (MANUAL) 70 % (40-74)
[2022-07-15 07:57] LABS: PLATELET ESTIMATE SLIGHTLY DECREASED; PLATELET MORPHOLOGY COMMENT NORMAL
[2022-07-15 07:59] LABS: RBC MORPHOLOGY COMMENT NORMAL
[2022-07-15 08:45] LABS: ALBUMIN 2.1 g/dL (3.5-5.0); ALBUMIN/GLOBULIN RATIO 1.3 (0.8-2.0); ANION GAP 13.4 mmol/L (8-16); CREATININE, SERUM 2.82 mg/dL (0.72-1.25); POTASSIUM 4.4 mmol/L (3.5-5.1)
[2022-07-15 08:51] LABS: CALCIUM 6.6 mg/dL (8.4-10.2)
[2022-07-15] MEDS ORDERED: PHYTONADIONE 10 MG/ML AMP SQ ONE (09:00)
[2022-07-15 09:01] LABS: ABG HCO3 26 mmol/L (22-26); ABG PCO2 32 mmHg (35-45); ABG PH 7.51 (7.35-7.45); ABG PO2 150 mmHg (80-105); ABG TCO2 27
[2022-07-15] MEDS ORDERED: SODIUM CHLORIDE 0.9% 1000ML 1,000 ML ONE (09:13)
[2022-07-15] MEDS ORDERED: BUMETANIDE INJ 0.25MG/ML 4ML VIAL IV ONE (09:45)
[2022-07-15] MEDS ORDERED: MANNITOL 25% 12.5GM/50 ML VIAL IV ONE (09:45)
[2022-07-15] MEDS ORDERED: SODIUM CHLORIDE 0.9% 250ML 250 ML ONE ×2 (09:51→11:54)
[2022-07-15] MEDS: NOREPINEPHRINE 8 MG/D5W 250 ML 250 ML IV SCH (10:58)
[2022-07-15] MEDS: SODIUM BICARBONATE 8.4% 75 ML in DEXTROSE 5% 1,000 ML IV SCH ×2 (11:43→23:55)
[2022-07-15 16:27] LABS: ABG HCO3 26 mmol/L (22-26); ABG PCO2 33 mmHg (35-45); ABG PH 7.51 (7.35-7.45); ABG PO2 151 mmHg (80-105); ABG TCO2 27
[2022-07-16] VITALS (82 sets, daily range): BP systolic 68–172; BP diastolic 36–81
[2022-07-16] MEDS: SODIUM CHLORIDE 0.9% 250ML IRRIG IR SCH ×5 (01:34→22:00)
[2022-07-16] MEDS: NOREPINEPHRINE 8 MG/D5W 250 ML 250 ML IV SCH ×2 (02:59→14:44)
[2022-07-16] MEDS: METRONIDAZOLE 500MG/NS 100ML 100 ML IV SCH ×2 (05:12→11:38)
[2022-07-16 07:16] LABS: BASOPHILS % 0.1 % (0.0-1.0); EOSINOPHILS % 0.3 % (0.0-6.0); HEMATOCRIT 23.8 % (38.2-49.6); HEMOGLOBIN 7.7 g/dL (14.0-18.0); LYMPHOCYTES # (AUTO) 0.4 (1.0-3.2); LYMPHOCYTES % 4.8 % (18.0-39.1); MEAN CORPUSCULAR HEMOGLOBIN 30.4 pg (28-32); MEAN CORPUSCULAR HGB CONC 32.4 g/dL (31-35); MEAN CORPUSCULAR VOLUME 94.1 fL (81-99); MONOCYTES # (AUTO) 0.2 (0.2-0.8); MONOCYTES % 2.7 % (4.4-11.3); NEUTROPHILS # (AUTO) 7.9 (2.1-6.9); NEUTROPHILS % 91.8 % (38.7-80.0); PLATELET COUNT 107 x10e3/uL (140-360); RED BLOOD COUNT 2.53 x10e6/uL (4.3-5.7); RED CELL DISTRIBUTION WIDTH 13.7 % (11.7-14.4)
[2022-07-16] MEDS ORDERED: BUMETANIDE INJ 0.25MG/ML 4ML VIAL IV ONE (08:00)
[2022-07-16 08:06] LABS: INR 1.69; PROTHROMBIN TIME 21.2 seconds (11.9-14.5)
[2022-07-16 08:16] LABS: ALBUMIN 1.7 g/dL (3.5-5.0); ANION GAP 20.2 mmol/L (8-16); CREATININE, SERUM 3.82 mg/dL (0.72-1.25); POTASSIUM 4.2 mmol/L (3.5-5.1)
[2022-07-16 08:28] LABS: CALCIUM 6.5 mg/dL (8.4-10.2)
[2022-07-16] MEDS ORDERED: CALCIUM GLUC 1 G/50 ML NACL 50 ML IV ONE (08:45)
[2022-07-16] MEDS: PROPOFOL IV EMULSION 10MG/ML 100 ML IV PRN ×2 (08:54→20:13)
[2022-07-16 09:56] LABS: ABG HCO3 26 mmol/L (22-26); ABG PCO2 44 mmHg (35-45); ABG PH 7.37 (7.35-7.45); ABG PO2 85 mmHg (80-105); ABG TCO2 27
[2022-07-16] MEDS: SODIUM BICARBONATE 8.4% 75 ML in DEXTROSE 5% 1,000 ML IV SCH (12:30)
[2022-07-16 12:38] LABS: LYMPHOCYTES % (MANUAL) 3 % (19-48); MONOCYTES % (MANUAL) 4 % (3.4-9.0); NEUTROPHILS % (MANUAL) 93 % (40-74); PLATELET ESTIMATE SLIGHTLY DECREASED; PLATELET MORPHOLOGY COMMENT NORMAL; RBC MORPHOLOGY COMMENT NORMAL
[2022-07-16] MEDS ORDERED: SODIUM CHLORIDE 0.9% 250ML 250 ML ONE (14:10)
[2022-07-16] MEDS ORDERED: SODIUM CHLORIDE 0.9% 1000ML 2,000 ML ONE (15:01)
[2022-07-16 16:22] LABS: ABG HCO3 28 mmol/L (22-26); ABG PCO2 37 mmHg (35-45); ABG PH 7.48 (7.35-7.45); ABG PO2 141 mmHg (80-105)
[2022-07-16 16:23] LABS: ABG TCO2 29
[2022-07-16] MEDS ORDERED: HEPARIN SOD (PORCINE) 1000 UNIT/ML SDV ONE (16:33)
[2022-07-16] MEDS ORDERED: SODIUM CHLORIDE 0.9% 1000ML 1,000 ML IV ONE (17:00)
[2022-07-16 18:38] LABS: BASOPHILS % 0.2 % (0.0-1.0); EOSINOPHILS # (AUTO) 0.1 (0.0-0.4); EOSINOPHILS % 0.9 % (0.0-6.0); LYMPHOCYTES # (AUTO) 0.3 (1.0-3.2); LYMPHOCYTES % 4.7 % (18.0-39.1); MEAN CORPUSCULAR HEMOGLOBIN 30.4 pg (28-32); MEAN CORPUSCULAR HGB CONC 32.6 g/dL (31-35); MEAN CORPUSCULAR VOLUME 93.1 fL (81-99); MONOCYTES # (AUTO) 0.3 (0.2-0.8); MONOCYTES % 4.2 % (4.4-11.3); NEUTROPHILS # (AUTO) 5.9 (2.1-6.9); NEUTROPHILS % 89.5 % (38.7-80.0); PLATELET COUNT 73 x10e3/uL (140-360); RED BLOOD COUNT 2.04 x10e6/uL (4.3-5.7); RED CELL DISTRIBUTION WIDTH 13.7 % (11.7-14.4)
[2022-07-16 19:06] LABS: HEMOGLOBIN 6.2 g/dL (14.0-18.0)
[2022-07-16 19:07] LABS: ALBUMIN 1.7 g/dL (3.5-5.0); ALBUMIN/GLOBULIN RATIO 1.2 (0.8-2.0); ANION GAP 17.8 mmol/L (8-16); CREATININE, SERUM 3.36 mg/dL (0.72-1.25); POTASSIUM 3.8 mmol/L (3.5-5.1)
[2022-07-16 19:10] LABS: CALCIUM 6.4 mg/dL (8.4-10.2)
[2022-07-16] MEDS ORDERED: SODIUM CHLORIDE 0.9% 250ML 250 ML IV ONE (19:30)
[2022-07-17] VITALS (96 sets, daily range): BP systolic 95–165; BP diastolic 48–71
[2022-07-17] MEDS: SODIUM CHLORIDE 0.9% 250ML IRRIG IR SCH ×6 (02:00→22:07)
[2022-07-17] MEDS: SODIUM BICARBONATE 8.4% 75 ML in DEXTROSE 5% 1,000 ML IV SCH ×2 (05:00→18:20)
[2022-07-17 06:41] LABS: BASOPHILS % 0.1 % (0.0-1.0); EOSINOPHILS # (AUTO) 0.1 (0.0-0.4); EOSINOPHILS % 1.4 % (0.0-6.0); HEMATOCRIT 22.8 % (38.2-49.6); HEMOGLOBIN 7.7 g/dL (14.0-18.0); LYMPHOCYTES # (AUTO) 0.4 (1.0-3.2); LYMPHOCYTES % 5.2 % (18.0-39.1); MEAN CORPUSCULAR HEMOGLOBIN 28.6 pg (28-32); MEAN CORPUSCULAR HGB CONC 33.8 g/dL (31-35); MEAN CORPUSCULAR VOLUME 84.8 fL (81-99); MONOCYTES # (AUTO) 0.5 (0.2-0.8); MONOCYTES % 6.1 % (4.4-11.3); NEUTROPHILS # (AUTO) 6.8 (2.1-6.9); NEUTROPHILS % 86.3 % (38.7-80.0); PLATELET COUNT 65 x10e3/uL (140-360); RED BLOOD COUNT 2.69 x10e6/uL (4.3-5.7); RED CELL DISTRIBUTION WIDTH 18.1 % (11.7-14.4)
[2022-07-17 06:59] LABS: ALBUMIN 1.6 g/dL (3.5-5.0); ALBUMIN/GLOBULIN RATIO 0.8 (0.8-2.0); ANION GAP 20.8 mmol/L (8-16); CREATININE, SERUM 3.82 mg/dL (0.72-1.25); PHOSPHORUS 3.8 MG/DL (2.3-4.7); POTASSIUM 3.8 mmol/L (3.5-5.1)
[2022-07-17 07:13] LABS: CALCIUM 6.4 mg/dL (8.4-10.2)
[2022-07-17] MEDS: PROPOFOL IV EMULSION 10MG/ML 100 ML IV PRN ×2 (07:25→14:56)
[2022-07-17 08:42] LABS: ABG HCO3 25 mmol/L (22-26); ABG PCO2 44 mmHg (35-45); ABG PH 7.37 (7.35-7.45); ABG PO2 97 mmHg (80-105); ABG TCO2 27
[2022-07-17] MEDS ORDERED: DEXTROSE 50% SYRINGE 50 ML IV ONE (09:50)
[2022-07-17 11:04] LABS: BAND NEUTROPHILS % (MANUAL) 7 %; EOSINOPHILS % (MANUAL) 2 % (0-7); LYMPHOCYTES % (MANUAL) 5 % (19-48); MONOCYTES % (MANUAL) 3 % (3.4-9.0); NEUTROPHILS % (MANUAL) 83 % (40-74); PLATELET ESTIMATE SLIGHTLY DECREASED; PLATELET MORPHOLOGY COMMENT NORMAL
[2022-07-17] MEDS: FUROSEMIDE INJ 10 MG/ML 4 ML VIAL IV SCH ×2 (13:44→22:07)
[2022-07-17] MEDS: NOREPINEPHRINE 8 MG/D5W 250 ML 250 ML IV SCH (14:00)
[2022-07-18] VITALS (64 sets, daily range): BP systolic 85–157; BP diastolic 37–70
[2022-07-18] MEDS: SODIUM CHLORIDE 0.9% 250ML IRRIG IR SCH ×6 (01:53→22:24)
[2022-07-18] MEDS: PROPOFOL IV EMULSION 10MG/ML 100 ML IV PRN ×2 (04:20→17:02)
[2022-07-18] MEDS: FUROSEMIDE INJ 10 MG/ML 4 ML VIAL IV SCH (05:18)
[2022-07-18 06:34] LABS: BASOPHILS % 0.3 % (0.0-1.0); EOSINOPHILS # (AUTO) 0.1 (0.0-0.4); EOSINOPHILS % 1.5 % (0.0-6.0); HEMATOCRIT 24.3 % (38.2-49.6); LYMPHOCYTES # (AUTO) 0.5 (1.0-3.2); LYMPHOCYTES % 6.5 % (18.0-39.1); MEAN CORPUSCULAR HEMOGLOBIN 28.1 pg (28-32); MEAN CORPUSCULAR HGB CONC 32.9 g/dL (31-35); MEAN CORPUSCULAR VOLUME 85.3 fL (81-99); MONOCYTES # (AUTO) 0.8 (0.2-0.8); MONOCYTES % 10.2 % (4.4-11.3); NEUTROPHILS # (AUTO) 6.1 (2.1-6.9); PLATELET COUNT 51 x10e3/uL (140-360); RED BLOOD COUNT 2.85 x10e6/uL (4.3-5.7); RED CELL DISTRIBUTION WIDTH 18.3 % (11.7-14.4)
[2022-07-18 07:15] LABS: ALBUMIN 1.6 g/dL (3.5-5.0); ALBUMIN/GLOBULIN RATIO 0.8 (0.8-2.0); ANION GAP 15.9 mmol/L (8-16); CALCIUM 7.1 mg/dL (8.4-10.2); CREATININE, SERUM 4.81 mg/dL (0.72-1.25); POTASSIUM 3.9 mmol/L (3.5-5.1)
[2022-07-18 08:37] LABS: ABG PH 7.49 (7.35-7.45)
[2022-07-18 08:38] LABS: ABG HCO3 31 mmol/L (22-26); ABG PCO2 40 mmHg (35-45); ABG PO2 175 mmHg (80-105); ABG TCO2 32
[2022-07-18] MEDS ORDERED: SODIUM CHLORIDE 0.9% 1000ML 2,000 ML ONE (09:08)
[2022-07-18 09:10] LABS: INR 1.26; PROTHROMBIN TIME 16.9 seconds (11.9-14.5)
[2022-07-18] MEDS ORDERED: ALBUMIN 25% 12.5GM 50ML 200 ML IV ONE (09:10)
[2022-07-18] MEDS: VASOPRESSIN 60 UNIT in DEXTROSE 5% 50ML 57 ML IV SCH ×2 (09:30→09:56)
[2022-07-18] MEDS ORDERED: SODIUM CHLORIDE 0.9% 1000ML 2,000 ML IV PRN (10:00)
[2022-07-18] MEDS ORDERED: ALBUMIN 25% 25GM 100ML 0.25 GM/ML BTL IV PRN (10:00)
[2022-07-18 10:11] LABS: EOSINOPHILS % (MANUAL) 1 % (0-7); LYMPHOCYTES % (MANUAL) 7 % (19-48); MONOCYTES % (MANUAL) 3 % (3.4-9.0); NEUTROPHILS % (MANUAL) 86 % (40-74)
[2022-07-18 10:12] LABS: ANISOCYTOSIS MODERATE; PLATELET ESTIMATE MODERATELY DECREASED; PLATELET MORPHOLOGY COMMENT NORMAL; RBC MORPHOLOGY COMMENT ABNORMAL
[2022-07-18] MEDS ORDERED: HEPARIN SOD (PORCINE) 1000 UNIT/ML SDV ONE (13:44)
[2022-07-18] MEDS: NOREPINEPHRINE 8 MG/D5W 250 ML 250 ML IV SCH (15:53)
[2022-07-18] MEDS: FUROSEMIDE INJ 400 MG in MANNITOL 20% 500ML 500 ML IV SCH (17:49)
[2022-07-19] VITALS (85 sets, daily range): BP systolic 92–186; BP diastolic 36–71
[2022-07-19] MEDS: SODIUM CHLORIDE 0.9% 250ML IRRIG IR SCH ×6 (01:45→21:55)
[2022-07-19] MEDS: DEXTROSE 5%/0.45% SOD CHL 1,000 ML IV SCH ×2 (03:30→23:15)
[2022-07-19] MEDS ORDERED: DEXTROSE 5%/0.45% SOD CHL 1,000 ML IV ONE (03:38)
[2022-07-19] MEDS: NOREPINEPHRINE 8 MG/D5W 250 ML 250 ML IV SCH (05:46)
[2022-07-19 06:28] LABS: BASOPHILS % 0.2 % (0.0-1.0); EOSINOPHILS # (AUTO) 0.1 (0.0-0.4); EOSINOPHILS % 0.8 % (0.0-6.0); HEMATOCRIT 22.7 % (38.2-49.6); HEMOGLOBIN 7.4 g/dL (14.0-18.0); LYMPHOCYTES # (AUTO) 0.6 (1.0-3.2); LYMPHOCYTES % 7.5 % (18.0-39.1); MEAN CORPUSCULAR HGB CONC 32.6 g/dL (31-35); MONOCYTES # (AUTO) 0.9 (0.2-0.8); MONOCYTES % 10.5 % (4.4-11.3); NEUTROPHILS # (AUTO) 6.8 (2.1-6.9); NEUTROPHILS % 79.5 % (38.7-80.0); PLATELET COUNT 52 x10e3/uL (140-360); RED BLOOD COUNT 2.64 x10e6/uL (4.3-5.7)
[2022-07-19 07:00] LABS: ALBUMIN 2.1 g/dL (3.5-5.0); ALBUMIN/GLOBULIN RATIO 1.1 (0.8-2.0); ANION GAP 18.3 mmol/L (8-16); CALCIUM 7.7 mg/dL (8.4-10.2); CREATININE, SERUM 4.91 mg/dL (0.72-1.25); MAGNESIUM 1.7 MG/DL (1.3-2.1); PHOSPHORUS 5.4 MG/DL (2.3-4.7); POTASSIUM 4.3 mmol/L (3.5-5.1)
[2022-07-19] MEDS ORDERED: SODIUM CHLORIDE 0.9% 250ML 250 ML IV ONE (08:30)
[2022-07-19] MEDS ORDERED: ALBUMIN 25% 12.5GM 0.25 GM/ML BTL IV PRN (09:15)
[2022-07-19] MEDS ORDERED: HEPARIN SOD (PORCINE) 1000 UNIT/ML SDV IV PRN (09:15)
[2022-07-19] MEDS: PROPOFOL IV EMULSION 10MG/ML 100 ML IV PRN ×2 (12:00→23:45)
[2022-07-19 13:15] LABS: ABG HCO3 29 mmol/L (22-26); ABG PCO2 40 mmHg (35-45); ABG PH 7.46 (7.35-7.45); ABG PO2 128 mmHg (80-105); ABG TCO2 30
[2022-07-19] MEDS: FUROSEMIDE INJ 400 MG in MANNITOL 20% 500ML 500 ML IV SCH ×2 (18:14→23:18)
[2022-07-20] VITALS (80 sets, daily range): BP systolic 86–164; BP diastolic 41–118
[2022-07-20] MEDS: SODIUM CHLORIDE 0.9% 250ML IRRIG IR SCH ×6 (01:47→22:30)
[2022-07-20] MEDS: DEXTROSE 5%/0.45% SOD CHL 1,000 ML IV SCH ×3 (05:43→20:55)
[2022-07-20] MEDS: VASOPRESSIN 60 UNIT in DEXTROSE 5% 50ML 57 ML IV SCH (05:52)
[2022-07-20 06:16] LABS: BASOPHILS % 0.3 % (0.0-1.0); EOSINOPHILS # (AUTO) 0.1 (0.0-0.4); EOSINOPHILS % 0.6 % (0.0-6.0); HEMATOCRIT 26.6 % (38.2-49.6); HEMOGLOBIN 8.7 g/dL (14.0-18.0); LYMPHOCYTES # (AUTO) 0.6 (1.0-3.2); LYMPHOCYTES % 5.3 % (18.0-39.1); MEAN CORPUSCULAR HEMOGLOBIN 28.5 pg (28-32); MEAN CORPUSCULAR HGB CONC 32.7 g/dL (31-35); MEAN CORPUSCULAR VOLUME 87.2 fL (81-99); MONOCYTES % 8.2 % (4.4-11.3); NEUTROPHILS # (AUTO) 10.1 (2.1-6.9); NEUTROPHILS % 84.5 % (38.7-80.0); PLATELET COUNT 55 x10e3/uL (140-360); RED BLOOD COUNT 3.05 x10e6/uL (4.3-5.7); RED CELL DISTRIBUTION WIDTH 17.1 % (11.7-14.4)
[2022-07-20 06:58] LABS: ALBUMIN 2.2 g/dL (3.5-5.0); ANION GAP 18.3 mmol/L (8-16); CREATININE, SERUM 5.01 mg/dL (0.72-1.25); POTASSIUM 4.3 mmol/L (3.5-5.1)
[2022-07-20 07:11] LABS: ABG PCO2 38 mmHg (35-45); ABG PH 7.46 (7.35-7.45); ABG PO2 97 mmHg (80-105)
[2022-07-20 07:12] LABS: ABG HCO3 27 mmol/L (22-26); ABG TCO2 28
[2022-07-20] MEDS: PROPOFOL IV EMULSION 10MG/ML 100 ML IV PRN (08:45)
[2022-07-20] MEDS ORDERED: DEXMEDETOMIDINE 400MCG/NS100ML 100 ML IV PRN (14:30)
[2022-07-20] MEDS: NOREPINEPHRINE 8 MG/D5W 250 ML 250 ML IV SCH (15:18)
[2022-07-20] MEDS: FUROSEMIDE INJ 400 MG in MANNITOL 20% 500ML 500 ML IV SCH (20:57)
[2022-07-21] VITALS (25 sets, daily range): BP systolic 112–182; BP diastolic 52–105
[2022-07-21] MEDS: SODIUM CHLORIDE 0.9% 250ML IRRIG IR SCH ×6 (02:52→23:25)
[2022-07-21 06:47] LABS: BASOPHILS % 0.2 % (0.0-1.0); EOSINOPHILS % 0.3 % (0.0-6.0); HEMATOCRIT 26.9 % (38.2-49.6); HEMOGLOBIN 8.6 g/dL (14.0-18.0); LYMPHOCYTES # (AUTO) 0.6 (1.0-3.2); LYMPHOCYTES % 4.6 % (18.0-39.1); MEAN CORPUSCULAR HEMOGLOBIN 28.5 pg (28-32); MEAN CORPUSCULAR VOLUME 89.1 fL (81-99); MONOCYTES # (AUTO) 0.8 (0.2-0.8); NEUTROPHILS # (AUTO) 11.3 (2.1-6.9); NEUTROPHILS % 87.8 % (38.7-80.0); RED BLOOD COUNT 3.02 x10e6/uL (4.3-5.7); RED CELL DISTRIBUTION WIDTH 17.2 % (11.7-14.4)
[2022-07-21 06:49] LABS: PLATELET COUNT 45 x10e3/uL (140-360)
[2022-07-21] MEDS: VASOPRESSIN 60 UNIT in DEXTROSE 5% 50ML 57 ML IV SCH (08:17)
[2022-07-21 09:38] LABS: ALBUMIN 2.2 g/dL (3.5-5.0); ALBUMIN/GLOBULIN RATIO 0.9 (0.8-2.0); CREATININE, SERUM 4.07 mg/dL (0.72-1.25)
[2022-07-21] MEDS ORDERED: BUMETANIDE INJ 0.25 MG/ML 10 ML VIAL IV ONE (09:45)
[2022-07-21] MEDS ORDERED: BUMETANIDE INJ 0.25MG/ML 4ML VIAL IV ONE (09:45)
[2022-07-21] MEDS: DEXTROSE 5%/0.45% SOD CHL 1,000 ML IV SCH (10:35)
[2022-07-21] MEDS: BUMETANIDE 10 MG in SODIUM CHLORIDE 0.9% 60 ML IV SCH ×3 (10:49→19:24)
[2022-07-21] MEDS ORDERED: MAGNESIUM SULFATE 2GM/50ML 50 ML IV ONE (11:00)
[2022-07-21 12:05] LABS: ABG PCO2 43 mmHg (35-45); ABG PH 7.43 (7.35-7.45)
[2022-07-21 12:06] LABS: ABG HCO3 28 mmol/L (22-26); ABG PO2 103 mmHg (80-105); ABG TCO2 29
[2022-07-21] MEDS: NOREPINEPHRINE 8 MG/D5W 250 ML 250 ML IV SCH (14:57)
[2022-07-21] MEDS: HYDRALAZINE HCL 20 MG/ML VIAL IV PRN (22:46)
[2022-07-22] VITALS (23 sets, daily range): BP systolic 102–171; BP diastolic 45–69
[2022-07-22] MEDS: BUMETANIDE 10 MG in SODIUM CHLORIDE 0.9% 60 ML IV SCH ×5 (00:42→21:13)
[2022-07-22] MEDS: HYDRALAZINE HCL 20 MG/ML VIAL IV PRN (04:02)
[2022-07-22] MEDS: SODIUM CHLORIDE 0.9% 250ML IRRIG IR SCH ×6 (04:53→21:17)
[2022-07-22] MEDS: DEXTROSE 5%/0.45% SOD CHL 1,000 ML IV SCH (05:25)
[2022-07-22 05:27] LABS: BASOPHILS % 0.2 % (0.0-1.0); EOSINOPHILS # (AUTO) 0.1 (0.0-0.4); EOSINOPHILS % 0.3 % (0.0-6.0); HEMATOCRIT 28.9 % (38.2-49.6); HEMOGLOBIN 9.1 g/dL (14.0-18.0); LYMPHOCYTES # (AUTO) 0.7 (1.0-3.2); LYMPHOCYTES % 4.1 % (18.0-39.1); MEAN CORPUSCULAR HEMOGLOBIN 28.5 pg (28-32); MEAN CORPUSCULAR HGB CONC 31.5 g/dL (31-35); MEAN CORPUSCULAR VOLUME 90.6 fL (81-99); MONOCYTES # (AUTO) 0.7 (0.2-0.8); MONOCYTES % 4.4 % (4.4-11.3); NEUTROPHILS # (AUTO) 15.3 (2.1-6.9); NEUTROPHILS % 89.7 % (38.7-80.0); PLATELET COUNT 85 x10e3/uL (140-360); RED BLOOD COUNT 3.19 x10e6/uL (4.3-5.7); RED CELL DISTRIBUTION WIDTH 16.9 % (11.7-14.4)
[2022-07-22 05:39] LABS: ALBUMIN 2.2 g/dL (3.5-5.0); ALBUMIN/GLOBULIN RATIO 0.8 (0.8-2.0); ANION GAP 19.9 mmol/L (8-16); CALCIUM 8.1 mg/dL (8.4-10.2); CREATININE, SERUM 5.04 mg/dL (0.72-1.25); MAGNESIUM 2.2 MG/DL (1.3-2.1); POTASSIUM 3.9 mmol/L (3.5-5.1)
[2022-07-22 08:51] LABS: ALBUMIN 2.3 g/dL (3.5-5.0); ALBUMIN/GLOBULIN RATIO 0.9 (0.8-2.0); ANION GAP 19.9 mmol/L (8-16); CALCIUM 8.2 mg/dL (8.4-10.2); CREATININE, SERUM 5.2 mg/dL (0.72-1.25); POTASSIUM 3.9 mmol/L (3.5-5.1)
[2022-07-22] MEDS ORDERED: NOREPINEPHRINE 8 MG/D5W 250 ML 250 ML ONE (10:42)
[2022-07-22] MEDS ORDERED: NOREPINEPHRINE 8 MG/D5W 250 ML 250 ML IV SCH (11:30)
[2022-07-22 18:20] LABS: INR 1.12; PROTHROMBIN TIME 15.4 seconds (11.9-14.5)
[2022-07-22 18:21] LABS: PARTIAL THROMBOPLASTIN TIME 39.6 seconds (23.8-35.5)
[2022-07-23] VITALS (25 sets, daily range): BP systolic 59–176; BP diastolic 47–92
[2022-07-23] MEDS: DEXTROSE 5%/0.45% SOD CHL 1,000 ML IV SCH (01:51)
[2022-07-23] MEDS: SODIUM CHLORIDE 0.9% 250ML IRRIG IR SCH ×4 (01:52→13:57)
[2022-07-23] MEDS: BUMETANIDE 10 MG in SODIUM CHLORIDE 0.9% 60 ML IV SCH ×5 (02:29→22:00)
[2022-07-23 07:24] LABS: ALBUMIN 2.4 g/dL (3.5-5.0); ALBUMIN/GLOBULIN RATIO 0.9 (0.8-2.0); ANION GAP 16.6 mmol/L (8-16); CALCIUM 8.1 mg/dL (8.4-10.2); CREATININE, SERUM 3.87 mg/dL (0.72-1.25); POTASSIUM 3.6 mmol/L (3.5-5.1)
[2022-07-23 07:55] LABS: BASOPHILS # (AUTO) 0.1 (0.0-0.1); BASOPHILS % 0.4 % (0.0-1.0); EOSINOPHILS # (AUTO) 0.1 (0.0-0.4); EOSINOPHILS % 0.5 % (0.0-6.0); HEMATOCRIT 34.5 % (38.2-49.6); HEMOGLOBIN 11.6 g/dL (14.0-18.0); LYMPHOCYTES # (AUTO) 0.6 (1.0-3.2); LYMPHOCYTES % 4.2 % (18.0-39.1); MEAN CORPUSCULAR HGB CONC 33.6 g/dL (31-35); MEAN CORPUSCULAR VOLUME 89.1 fL (81-99); MONOCYTES # (AUTO) 0.7 (0.2-0.8); MONOCYTES % 4.9 % (4.4-11.3); NEUTROPHILS # (AUTO) 12.4 (2.1-6.9); PLATELET COUNT 84 x10e3/uL (140-360); RED BLOOD COUNT 3.87 x10e6/uL (4.3-5.7); RED CELL DISTRIBUTION WIDTH 17.2 % (11.7-14.4)
[2022-07-23 11:23] LABS: ABG HCO3 27 mmol/L (22-26); ABG PCO2 40 mmHg (35-45); ABG PH 7.43 (7.35-7.45); ABG PO2 122 mmHg (80-105); ABG TCO2 28
[2022-07-23] MEDS ORDERED: CARBIDOPA/LEVODOPA 25/100 TAB PO SCH (15:00)
[2022-07-23] MEDS: CARBIDOPA/LEVODOPA 25/100 TAB NG SCH (21:55)
[2022-07-24] VITALS (34 sets, daily range): BP systolic 108–156; BP diastolic 51–67
[2022-07-24] MEDS: BUMETANIDE 10 MG in SODIUM CHLORIDE 0.9% 60 ML IV SCH ×5 (01:18→22:41)
[2022-07-24 06:50] LABS: BASOPHILS # (AUTO) 0.1 (0.0-0.1); BASOPHILS % 0.3 % (0.0-1.0); EOSINOPHILS # (AUTO) 0.1 (0.0-0.4); EOSINOPHILS % 0.5 % (0.0-6.0); HEMATOCRIT 30.6 % (38.2-49.6); HEMOGLOBIN 9.5 g/dL (14.0-18.0); LYMPHOCYTES # (AUTO) 0.9 (1.0-3.2); MEAN CORPUSCULAR HEMOGLOBIN 28.5 pg (28-32); MEAN CORPUSCULAR VOLUME 91.9 fL (81-99); MONOCYTES % 5.4 % (4.4-11.3); NEUTROPHILS # (AUTO) 16.6 (2.1-6.9); NEUTROPHILS % 87.6 % (38.7-80.0); PLATELET COUNT 165 x10e3/uL (140-360); RED BLOOD COUNT 3.33 x10e6/uL (4.3-5.7); RED CELL DISTRIBUTION WIDTH 17.5 % (11.7-14.4)
[2022-07-24 07:06] LABS: ALBUMIN 2.4 g/dL (3.5-5.0); ALBUMIN/GLOBULIN RATIO 0.9 (0.8-2.0); ANION GAP 16.7 mmol/L (8-16); CALCIUM 8.2 mg/dL (8.4-10.2); CREATININE, SERUM 4.75 mg/dL (0.72-1.25); POTASSIUM 3.7 mmol/L (3.5-5.1)
[2022-07-24] MEDS: CARBIDOPA/LEVODOPA 25/100 TAB NG SCH ×3 (08:59→20:42)
[2022-07-24 13:34] LABS: ABG HCO3 25 mmol/L (22-26); ABG PCO2 36 mmHg (35-45); ABG PH 7.46 (7.35-7.45); ABG PO2 120 mmHg (80-105); ABG TCO2 26
[2022-07-24] MEDS: DEXTROSE 5%/0.45% SOD CHL 1,000 ML IV SCH (17:36)
[2022-07-25] VITALS (60 sets, daily range): BP systolic 85–215; BP diastolic 35–101
[2022-07-25] MEDS: BUMETANIDE 10 MG in SODIUM CHLORIDE 0.9% 60 ML IV SCH (03:31)
[2022-07-25 06:22] LABS: BASOPHILS # (AUTO) 0.1 (0.0-0.1); BASOPHILS % 0.3 % (0.0-1.0); EOSINOPHILS # (AUTO) 0.1 (0.0-0.4); EOSINOPHILS % 0.7 % (0.0-6.0); HEMATOCRIT 28.3 % (38.2-49.6); HEMOGLOBIN 9.4 g/dL (14.0-18.0); LYMPHOCYTES # (AUTO) 0.9 (1.0-3.2); MEAN CORPUSCULAR HGB CONC 33.2 g/dL (31-35); MEAN CORPUSCULAR VOLUME 87.3 fL (81-99); MONOCYTES # (AUTO) 1.1 (0.2-0.8); NEUTROPHILS # (AUTO) 15.6 (2.1-6.9); NEUTROPHILS % 86.6 % (38.7-80.0); PLATELET COUNT 230 x10e3/uL (140-360); RED BLOOD COUNT 3.24 x10e6/uL (4.3-5.7); RED CELL DISTRIBUTION WIDTH 17.9 % (11.7-14.4)
[2022-07-25 06:54] LABS: ALBUMIN 2.2 g/dL (3.5-5.0); ALBUMIN/GLOBULIN RATIO 0.7 (0.8-2.0); CALCIUM 8.1 mg/dL (8.4-10.2); CREATININE, SERUM 4.88 mg/dL (0.72-1.25)
[2022-07-25] MEDS: ASPIRIN 81 MG CHEW TAB PO SCH (09:19)
[2022-07-25] MEDS: CARBIDOPA/LEVODOPA 25/100 TAB NG SCH ×3 (09:19→20:45)
[2022-07-25] MEDS: DEXTROSE 5%/0.45% SOD CHL 1,000 ML IV SCH (09:20)
[2022-07-25] MEDS ORDERED: HEPARIN SOD (PORCINE) 1000 UNIT/ML SDV IV PRN (10:15)
[2022-07-25] MEDS ORDERED: ALBUMIN 25% 12.5GM 0.25 GM/ML BTL IV PRN (10:15)
[2022-07-25] MEDS ORDERED: SODIUM CHLORIDE 0.9% 500ML 500 ML ONE (16:51)
[2022-07-26] VITALS (25 sets, daily range): BP systolic 79–164; BP diastolic 38–79
[2022-07-26 06:41] LABS: BASOPHILS # (AUTO) 0.1 (0.0-0.1); BASOPHILS % 0.4 % (0.0-1.0); EOSINOPHILS # (AUTO) 0.1 (0.0-0.4); EOSINOPHILS % 0.7 % (0.0-6.0); HEMATOCRIT 25.9 % (38.2-49.6); HEMOGLOBIN 8.4 g/dL (14.0-18.0); LYMPHOCYTES # (AUTO) 0.8 (1.0-3.2); LYMPHOCYTES % 5.3 % (18.0-39.1); MEAN CORPUSCULAR HEMOGLOBIN 29.2 pg (28-32); MEAN CORPUSCULAR HGB CONC 32.4 g/dL (31-35); MEAN CORPUSCULAR VOLUME 89.9 fL (81-99); MONOCYTES # (AUTO) 1.1 (0.2-0.8); MONOCYTES % 6.7 % (4.4-11.3); NEUTROPHILS # (AUTO) 13.4 (2.1-6.9); NEUTROPHILS % 85.8 % (38.7-80.0); PLATELET COUNT 262 x10e3/uL (140-360); RED BLOOD COUNT 2.88 x10e6/uL (4.3-5.7); RED CELL DISTRIBUTION WIDTH 18.3 % (11.7-14.4)
[2022-07-26 07:11] LABS: ALBUMIN 2.4 g/dL (3.5-5.0); ALBUMIN/GLOBULIN RATIO 0.8 (0.8-2.0); ANION GAP 14.8 mmol/L (8-16); CALCIUM 8.3 mg/dL (8.4-10.2); CREATININE, SERUM 3.66 mg/dL (0.72-1.25); POTASSIUM 3.8 mmol/L (3.5-5.1)
[2022-07-26] MEDS: DEXTROSE 5%/0.45% SOD CHL 1,000 ML IV SCH (08:04)
[2022-07-26] MEDS: ASPIRIN 81 MG CHEW TAB PO SCH (08:58)
[2022-07-26] MEDS: MIDODRINE HCL 5 MG TABLET PO SCH ×2 (08:58→15:31)
[2022-07-26] MEDS: CARBIDOPA/LEVODOPA 25/100 TAB NG SCH ×3 (08:58→21:14)
[2022-07-26] MEDS ORDERED: FUROSEMIDE INJ 10 MG/ML 4 ML VIAL IV ONE (10:30)
[2022-07-26] MEDS ORDERED: FLUMAZENIL 0.5MG/ 5ML VIAL ONE (13:33)
[2022-07-26] MEDS ORDERED: DIATRIZOATE MEGL/DIATRIZOA SOD 30 ML BTL PO ONE (15:20)
[2022-07-26 19:17] LABS: CHOL/HDL RATIO 5.5 (3.9-4.7)
[2022-07-26 19:38] LABS: THYROID STIMULATING HORMONE 11.811 uIU/mL (0.350-4.940)
[2022-07-27] VITALS (72 sets, daily range): BP systolic 52–156; BP diastolic 27–91
[2022-07-27] MEDS: ACETAMINOPHEN 325 MG TAB PO PRN (01:12)
[2022-07-27] MEDS: DEXTROSE 5%/0.45% SOD CHL 1,000 ML IV SCH (04:06)
[2022-07-27 05:31] LABS: BASOPHILS # (AUTO) 0.1 (0.0-0.1); BASOPHILS % 0.4 % (0.0-1.0); EOSINOPHILS # (AUTO) 0.2 (0.0-0.4); EOSINOPHILS % 1.1 % (0.0-6.0); HEMATOCRIT 25.8 % (38.2-49.6); HEMOGLOBIN 8.1 g/dL (14.0-18.0); LYMPHOCYTES # (AUTO) 1.1 (1.0-3.2); LYMPHOCYTES % 7.8 % (18.0-39.1); MEAN CORPUSCULAR HEMOGLOBIN 28.9 pg (28-32); MEAN CORPUSCULAR HGB CONC 31.4 g/dL (31-35); MEAN CORPUSCULAR VOLUME 92.1 fL (81-99); MONOCYTES # (AUTO) 1.1 (0.2-0.8); MONOCYTES % 8.1 % (4.4-11.3); NEUTROPHILS # (AUTO) 11.4 (2.1-6.9); NEUTROPHILS % 81.9 % (38.7-80.0); PLATELET COUNT 334 x10e3/uL (140-360); RED CELL DISTRIBUTION WIDTH 18.5 % (11.7-14.4)
[2022-07-27 05:51] LABS: ALBUMIN 2.3 g/dL (3.5-5.0); ALBUMIN/GLOBULIN RATIO 0.8 (0.8-2.0); ANION GAP 17.9 mmol/L (8-16); CALCIUM 8.7 mg/dL (8.4-10.2); CREATININE, SERUM 4.2 mg/dL (0.72-1.25); POTASSIUM 3.9 mmol/L (3.5-5.1)
[2022-07-27 06:01] LABS: MAGNESIUM 1.8 MG/DL (1.3-2.1); PHOSPHORUS 6.5 MG/DL (2.3-4.7)
[2022-07-27] MEDS ORDERED: AMIODARONE HCL 360MG 200 ML IV SCH ×2 (07:00→12:00)
[2022-07-27] MEDS ORDERED: AMIODARONE HCL 150MG 100 ML IV ONE (07:00)
[2022-07-27] MEDS ORDERED: AMIODARONE 900MG 500 ML IV SCH (07:10)
[2022-07-27] MEDS: VASOPRESSIN 60 UNIT in DEXTROSE 5% 50ML 57 ML IV PRN (07:19)
[2022-07-27] MEDS ORDERED: ETOMIDATE 2 MG/ML 10 ML INJ IV STA (07:34)
[2022-07-27] MEDS ORDERED: ETOMIDATE 40 MG/ 20ML VIAL IV STA (07:44)
[2022-07-27] MEDS ORDERED: NOREPINEPHRINE 8 MG/D5W 250 ML 250 ML IV SCH (07:45)
[2022-07-27] MEDS ORDERED: AMIODARONE HCL 100 ML IV ONE (08:09)
[2022-07-27] MEDS ORDERED: ALBUMIN 25% 25GM 100ML 0.25 GM/ML BTL IV ONE (08:30)
[2022-07-27] MEDS: CARBIDOPA/LEVODOPA 25/100 TAB NG SCH ×3 (10:18→21:32)
[2022-07-27] MEDS: ASPIRIN 81 MG CHEW TAB PO SCH (10:18)
[2022-07-27] MEDS: MIDODRINE HCL 5 MG TABLET PO SCH (10:18)
[2022-07-27 11:01] LABS: ABG HCO3 27 mmol/L (22-26); ABG PCO2 40 mmHg (35-45); ABG PH 7.44 (7.35-7.45); ABG PO2 102 mmHg (80-105); ABG TCO2 28
[2022-07-27 16:27] LABS: FREE THYROXINE INDEX 1.1494 (1.4-3.8)
[2022-07-28] VITALS (79 sets, daily range): BP systolic 90–156; BP diastolic 41–78
[2022-07-28] MEDS: DEXTROSE 5%/0.45% SOD CHL 1,000 ML IV SCH (00:12)
[2022-07-28] MEDS: VASOPRESSIN 60 UNIT in DEXTROSE 5% 50ML 57 ML IV PRN (06:11)
[2022-07-28 07:15] LABS: BASOPHILS # (AUTO) 0.1 (0.0-0.1); BASOPHILS % 0.6 % (0.0-1.0); EOSINOPHILS # (AUTO) 0.1 (0.0-0.4); EOSINOPHILS % 0.9 % (0.0-6.0); HEMATOCRIT 21.6 % (38.2-49.6); HEMOGLOBIN 7.2 g/dL (14.0-18.0); LYMPHOCYTES # (AUTO) 0.6 (1.0-3.2); LYMPHOCYTES % 6.4 % (18.0-39.1); MEAN CORPUSCULAR HEMOGLOBIN 30.6 pg (28-32); MEAN CORPUSCULAR HGB CONC 33.3 g/dL (31-35); MEAN CORPUSCULAR VOLUME 91.9 fL (81-99); MONOCYTES # (AUTO) 0.8 (0.2-0.8); MONOCYTES % 8.5 % (4.4-11.3); NEUTROPHILS # (AUTO) 8.2 (2.1-6.9); PLATELET COUNT 363 x10e3/uL (140-360); RED BLOOD COUNT 2.35 x10e6/uL (4.3-5.7); RED CELL DISTRIBUTION WIDTH 18.1 % (11.7-14.4)
[2022-07-28 07:42] LABS: ALBUMIN 2.5 g/dL (3.5-5.0); ALBUMIN/GLOBULIN RATIO 0.9 (0.8-2.0); ANION GAP 18.6 mmol/L (8-16); CALCIUM 8.2 mg/dL (8.4-10.2); CREATININE, SERUM 4.24 mg/dL (0.72-1.25); MAGNESIUM 1.7 MG/DL (1.3-2.1); PHOSPHORUS 5.9 MG/DL (2.3-4.7); POTASSIUM 3.6 mmol/L (3.5-5.1)
[2022-07-28 08:18] LABS: ABG HCO3 28 mmol/L (22-26); ABG PCO2 41 mmHg (35-45); ABG PH 7.45 (7.35-7.45); ABG PO2 125 mmHg (80-105); ABG TCO2 29
[2022-07-28] MEDS ORDERED: MAGNESIUM SULFATE 2GM/50ML 50 ML IV ONE (09:00)
[2022-07-28] MEDS: CARBIDOPA/LEVODOPA 25/100 TAB NG SCH ×3 (09:01→21:37)
[2022-07-28] MEDS: ASPIRIN 81 MG CHEW TAB PO SCH (09:01)
[2022-07-28] MEDS: AMIODARONE HCL 200 MG TAB PO SCH ×2 (09:01→17:23)
[2022-07-28] MEDS ORDERED: FUROSEMIDE INJ 10 MG/ML 4 ML VIAL IV ONE (11:30)
[2022-07-28] MEDS: LEVALBUTEROL HCL SOLN NEBU 0.63 MG/3 ML NEB INH SCH ×2 (12:14→18:55)
[2022-07-28] MEDS ORDERED: ALBUTEROL/IPRATROPIUM 3 ML NEB NEB SCH (13:00)
[2022-07-28] MEDS: ACETYLCYSTEINE 200 MG/ML 4ML VIAL INH SCH (18:55)
[2022-07-29] VITALS (72 sets, daily range): BP systolic 91–213; BP diastolic 44–138
[2022-07-29] MEDS: LEVALBUTEROL HCL SOLN NEBU 0.63 MG/3 ML NEB INH SCH ×4 (02:55→19:15)
[2022-07-29 06:45] LABS: BASOPHILS # (AUTO) 0.1 (0.0-0.1); BASOPHILS % 0.8 % (0.0-1.0); EOSINOPHILS # (AUTO) 0.1 (0.0-0.4); EOSINOPHILS % 0.9 % (0.0-6.0); HEMATOCRIT 23.7 % (38.2-49.6); HEMOGLOBIN 7.6 g/dL (14.0-18.0); LYMPHOCYTES # (AUTO) 0.7 (1.0-3.2); LYMPHOCYTES % 7.9 % (18.0-39.1); MEAN CORPUSCULAR HEMOGLOBIN 29.6 pg (28-32); MEAN CORPUSCULAR HGB CONC 32.1 g/dL (31-35); MEAN CORPUSCULAR VOLUME 92.2 fL (81-99); MONOCYTES # (AUTO) 0.9 (0.2-0.8); MONOCYTES % 10.3 % (4.4-11.3); NEUTROPHILS # (AUTO) 6.9 (2.1-6.9); NEUTROPHILS % 79.3 % (38.7-80.0); PLATELET COUNT 469 x10e3/uL (140-360); RED BLOOD COUNT 2.57 x10e6/uL (4.3-5.7); RED CELL DISTRIBUTION WIDTH 17.8 % (11.7-14.4)
[2022-07-29 07:06] LABS: ALBUMIN 2.3 g/dL (3.5-5.0); ALBUMIN/GLOBULIN RATIO 0.7 (0.8-2.0); ANION GAP 16.5 mmol/L (8-16); CALCIUM 8.1 mg/dL (8.4-10.2); CREATININE, SERUM 4.15 mg/dL (0.72-1.25); POTASSIUM 3.5 mmol/L (3.5-5.1)
[2022-07-29] MEDS: ACETYLCYSTEINE 200 MG/ML 4ML VIAL INH SCH ×2 (07:12→19:15)
[2022-07-29] MEDS: CARBIDOPA/LEVODOPA 25/100 TAB NG SCH ×4 (08:11→21:51)
[2022-07-29] MEDS: AMIODARONE HCL 200 MG TAB PO SCH ×3 (08:11→17:00)
[2022-07-29] MEDS: ASPIRIN 81 MG CHEW TAB PO SCH (08:11)
[2022-07-29] MEDS ORDERED: FUROSEMIDE INJ 10 MG/ML 4 ML VIAL IV ONE (11:00)
[2022-07-29] MEDS ORDERED: EPHEDRINE SULFATE INJ 50 MG/ML VIAL ONE (11:53)
[2022-07-29] MEDS ORDERED: MIDAZOLAM HCL 2 MG/2 ML VIAL ONE (19:26)
[2022-07-29] MEDS ORDERED: FENTANYL CITRATE/PF 100MCG/2 ML INJ ONE (19:26)
[2022-07-30] VITALS (77 sets, daily range): BP systolic 70–183; BP diastolic 33–115
[2022-07-30] MEDS: LEVALBUTEROL HCL SOLN NEBU 0.63 MG/3 ML NEB INH SCH ×4 (02:45→19:20)
[2022-07-30 07:03] LABS: BASOPHILS # (AUTO) 0.1 (0.0-0.1); EOSINOPHILS # (AUTO) 0.1 (0.0-0.4); EOSINOPHILS % 0.8 % (0.0-6.0); HEMATOCRIT 25.8 % (38.2-49.6); HEMOGLOBIN 8.2 g/dL (14.0-18.0); LYMPHOCYTES # (AUTO) 0.7 (1.0-3.2); LYMPHOCYTES % 9.7 % (18.0-39.1); MEAN CORPUSCULAR HEMOGLOBIN 29.6 pg (28-32); MEAN CORPUSCULAR HGB CONC 31.8 g/dL (31-35); MEAN CORPUSCULAR VOLUME 93.1 fL (81-99); MONOCYTES # (AUTO) 0.9 (0.2-0.8); MONOCYTES % 12.1 % (4.4-11.3); NEUTROPHILS # (AUTO) 5.4 (2.1-6.9); PLATELET COUNT 522 x10e3/uL (140-360); RED BLOOD COUNT 2.77 x10e6/uL (4.3-5.7); RED CELL DISTRIBUTION WIDTH 17.8 % (11.7-14.4)
[2022-07-30] MEDS: ACETYLCYSTEINE 200 MG/ML 4ML VIAL INH SCH ×2 (07:05→19:20)
[2022-07-30 07:26] LABS: ALBUMIN 2.3 g/dL (3.5-5.0); ALBUMIN/GLOBULIN RATIO 0.7 (0.8-2.0); ANION GAP 18.6 mmol/L (8-16); CALCIUM 8.3 mg/dL (8.4-10.2); CREATININE, SERUM 3.9 mg/dL (0.72-1.25); POTASSIUM 3.6 mmol/L (3.5-5.1)
[2022-07-30] MEDS: CARBIDOPA/LEVODOPA 25/100 TAB NG SCH ×3 (08:09→21:08)
[2022-07-30] MEDS: AMIODARONE HCL 200 MG TAB PO SCH ×3 (08:09→21:09)
[2022-07-30] MEDS ORDERED: KCL 20 MEQ PACKET/ ORAL SOLN NG SCH (09:15)
[2022-07-30 13:45] LABS: ABG HCO3 26 mmol/L (22-26); ABG PCO2 36 mmHg (35-45); ABG PH 7.47 (7.35-7.45); ABG PO2 168 mmHg (80-105); ABG TCO2 27
[2022-07-30] MEDS: KCL 20 MEQ PACKET/ ORAL SOLN NG SCH (14:47)
[2022-07-30] MEDS: FUROSEMIDE INJ 10 MG/ML 4 ML VIAL IV SCH (14:47)
[2022-07-30] MEDS: ASPIRIN 81 MG CHEW TAB PO SCH (14:48)
[2022-07-30] MEDS ORDERED: AMIODARONE HCL 150 MG/100 ML BAG IV ONE (18:45)
[2022-07-30] MEDS ORDERED: METOPROLOL TARTRATE INJ 1 MG/ML VIAL IV ONE (18:45)
[2022-07-30] MEDS ORDERED: AMIODARONE 900MG 900 MG in Premix Bag 1 BAG IV SCH (18:45)
[2022-07-30] MEDS ORDERED: METOPROLOL TARTRATE INJ 1 MG/ML VIAL ONE (18:51)
[2022-07-30] MEDS ORDERED: AMIODARONE 900MG 500 ML IV ONE (19:36)
[2022-07-30] MEDS ORDERED: FUROSEMIDE INJ 10 MG/ML 4 ML VIAL IV SCH (21:00)
[2022-07-31] VITALS (77 sets, daily range): BP systolic 102–151; BP diastolic 37–67
[2022-07-31] MEDS: LEVALBUTEROL HCL SOLN NEBU 0.63 MG/3 ML NEB INH SCH ×4 (01:10→19:05)
[2022-07-31] MEDS: FUROSEMIDE INJ 10 MG/ML 4 ML VIAL IV SCH ×2 (01:40→13:34)
[2022-07-31] MEDS: KCL 20 MEQ PACKET/ ORAL SOLN NG SCH ×2 (01:40→13:34)
[2022-07-31 06:09] LABS: BASOPHILS # (AUTO) 0.1 (0.0-0.1); BASOPHILS % 0.8 % (0.0-1.0); EOSINOPHILS # (AUTO) 0.1 (0.0-0.4); EOSINOPHILS % 1.4 % (0.0-6.0); HEMATOCRIT 24.3 % (38.2-49.6); HEMOGLOBIN 8.2 g/dL (14.0-18.0); LYMPHOCYTES # (AUTO) 0.8 (1.0-3.2); LYMPHOCYTES % 10.2 % (18.0-39.1); MEAN CORPUSCULAR HEMOGLOBIN 31.1 pg (28-32); MEAN CORPUSCULAR HGB CONC 33.7 g/dL (31-35); MONOCYTES % 13.6 % (4.4-11.3); NEUTROPHILS # (AUTO) 5.4 (2.1-6.9); NEUTROPHILS % 73.5 % (38.7-80.0); PLATELET COUNT 530 x10e3/uL (140-360); RED BLOOD COUNT 2.64 x10e6/uL (4.3-5.7); RED CELL DISTRIBUTION WIDTH 17.6 % (11.7-14.4)
[2022-07-31 06:22] LABS: PHOSPHORUS 5.8 MG/DL (2.3-4.7)
[2022-07-31] MEDS: ACETYLCYSTEINE 200 MG/ML 4ML VIAL INH SCH ×2 (07:12→19:05)
[2022-07-31 07:47] LABS: ALBUMIN 2.3 g/dL (3.5-5.0); ALBUMIN/GLOBULIN RATIO 0.7 (0.8-2.0); ANION GAP 18.8 mmol/L (8-16); CALCIUM 8.4 mg/dL (8.4-10.2); CREATININE, SERUM 3.83 mg/dL (0.72-1.25); POTASSIUM 3.8 mmol/L (3.5-5.1)
[2022-07-31] MEDS: CARBIDOPA/LEVODOPA 25/100 TAB NG SCH ×3 (08:38→21:10)
[2022-07-31] MEDS: ASPIRIN 81 MG CHEW TAB PO SCH (08:38)
[2022-07-31] MEDS: AMIODARONE HCL 200 MG TAB PO SCH ×3 (08:39→21:10)
[2022-08-01] VITALS (55 sets, daily range): BP systolic 72–133; BP diastolic 34–71
[2022-08-01] MEDS: LEVALBUTEROL HCL SOLN NEBU 0.63 MG/3 ML NEB INH SCH ×4 (00:20→19:36)
[2022-08-01] MEDS: HYDRALAZINE HCL 20 MG/ML VIAL IV PRN (02:20)
[2022-08-01] MEDS: ACETYLCYSTEINE 200 MG/ML 4ML VIAL INH SCH ×2 (07:00→19:36)
[2022-08-01 07:16] LABS: BASOPHILS % 0.5 % (0.0-1.0); EOSINOPHILS # (AUTO) 0.1 (0.0-0.4); EOSINOPHILS % 1.5 % (0.0-6.0); HEMATOCRIT 27.5 % (38.2-49.6); HEMOGLOBIN 8.5 g/dL (14.0-18.0); LYMPHOCYTES # (AUTO) 0.9 (1.0-3.2); LYMPHOCYTES % 10.6 % (18.0-39.1); MEAN CORPUSCULAR HEMOGLOBIN 29.6 pg (28-32); MEAN CORPUSCULAR HGB CONC 30.9 g/dL (31-35); MEAN CORPUSCULAR VOLUME 95.8 fL (81-99); MONOCYTES % 11.7 % (4.4-11.3); NEUTROPHILS # (AUTO) 6.2 (2.1-6.9); NEUTROPHILS % 75.2 % (38.7-80.0); PLATELET COUNT 537 x10e3/uL (140-360); RED BLOOD COUNT 2.87 x10e6/uL (4.3-5.7); RED CELL DISTRIBUTION WIDTH 17.4 % (11.7-14.4)
[2022-08-01 07:44] LABS: ALBUMIN 2.4 g/dL (3.5-5.0); ALBUMIN/GLOBULIN RATIO 0.7 (0.8-2.0); ANION GAP 16.4 mmol/L (8-16); CALCIUM 8.3 mg/dL (8.4-10.2); CREATININE, SERUM 3.51 mg/dL (0.72-1.25); MAGNESIUM 1.9 MG/DL (1.3-2.1); POTASSIUM 3.4 mmol/L (3.5-5.1)
[2022-08-01 08:16] LABS: PHOSPHORUS 5.2 MG/DL (2.3-4.7)
[2022-08-01] MEDS: CARBIDOPA/LEVODOPA 25/100 TAB NG SCH ×3 (08:55→20:56)
[2022-08-01] MEDS: AMIODARONE HCL 200 MG TAB PO SCH ×3 (08:56→20:56)
[2022-08-01] MEDS: ASPIRIN 81 MG CHEW TAB PO SCH (08:56)
[2022-08-02] VITALS (23 sets, daily range): BP systolic 103–130; BP diastolic 43–60
[2022-08-02] MEDS: LEVALBUTEROL HCL SOLN NEBU 0.63 MG/3 ML NEB INH SCH ×4 (00:10→19:55)
[2022-08-02] MEDS: ACETYLCYSTEINE 200 MG/ML 4ML VIAL INH SCH ×2 (07:35→19:55)
[2022-08-02] MEDS: CARBIDOPA/LEVODOPA 25/100 TAB NG SCH ×3 (09:04→20:32)
[2022-08-02] MEDS: AMIODARONE HCL 200 MG TAB PO SCH ×3 (09:04→20:32)
[2022-08-02] MEDS: ASPIRIN 81 MG CHEW TAB PO SCH (09:05)
[2022-08-02 09:20] LABS: BASOPHILS # (AUTO) 0.1 (0.0-0.1); BASOPHILS % 0.7 % (0.0-1.0); EOSINOPHILS # (AUTO) 0.1 (0.0-0.4); EOSINOPHILS % 1.2 % (0.0-6.0); HEMATOCRIT 27.3 % (38.2-49.6); HEMOGLOBIN 8.3 g/dL (14.0-18.0); LYMPHOCYTES # (AUTO) 1.1 (1.0-3.2); LYMPHOCYTES % 13.8 % (18.0-39.1); MEAN CORPUSCULAR HEMOGLOBIN 29.7 pg (28-32); MEAN CORPUSCULAR HGB CONC 30.4 g/dL (31-35); MEAN CORPUSCULAR VOLUME 97.8 fL (81-99); MONOCYTES # (AUTO) 0.8 (0.2-0.8); MONOCYTES % 9.8 % (4.4-11.3); PLATELET COUNT 565 x10e3/uL (140-360); RED BLOOD COUNT 2.79 x10e6/uL (4.3-5.7); RED CELL DISTRIBUTION WIDTH 17.2 % (11.7-14.4)
[2022-08-02 09:39] LABS: ANION GAP 16.1 mmol/L (8-16); CALCIUM 8.6 mg/dL (8.4-10.2); CREATININE, SERUM 3.17 mg/dL (0.72-1.25); POTASSIUM 3.1 mmol/L (3.5-5.1)
[2022-08-02] MEDS ORDERED: POTASSIUM CHLORIDE 20 MEQ TAB CR PO ONE (12:45)
[2022-08-02] MEDS ORDERED: POTASSIUM BICARBONATE/CIT AC 20 MEQ TABLET.EFF PO ONE (14:15)
[2022-08-02] MEDS ORDERED: KCL 20 MEQ PACKET/ ORAL SOLN NG ONE (15:25)
[2022-08-03] VITALS (19 sets, daily range): BP systolic 102–128; BP diastolic 48–60
[2022-08-03] MEDS: LEVALBUTEROL HCL SOLN NEBU 0.63 MG/3 ML NEB INH SCH ×4 (02:15→19:10)
[2022-08-03] MEDS: ACETYLCYSTEINE 200 MG/ML 4ML VIAL INH SCH (06:51)
[2022-08-03 07:30] LABS: BASOPHILS # (AUTO) 0.1 (0.0-0.1); BASOPHILS % 1.1 % (0.0-1.0); EOSINOPHILS # (AUTO) 0.1 (0.0-0.4); EOSINOPHILS % 1.5 % (0.0-6.0); HEMATOCRIT 23.9 % (38.2-49.6); HEMOGLOBIN 7.9 g/dL (14.0-18.0); LYMPHOCYTES % 13.5 % (18.0-39.1); MEAN CORPUSCULAR HEMOGLOBIN 33.3 pg (28-32); MEAN CORPUSCULAR HGB CONC 33.1 g/dL (31-35); MEAN CORPUSCULAR VOLUME 100.8 fL (81-99); MONOCYTES # (AUTO) 0.7 (0.2-0.8); MONOCYTES % 9.2 % (4.4-11.3); NEUTROPHILS # (AUTO) 5.5 (2.1-6.9); PLATELET COUNT 579 x10e3/uL (140-360); RED BLOOD COUNT 2.37 x10e6/uL (4.3-5.7); RED CELL DISTRIBUTION WIDTH 16.9 % (11.7-14.4)
[2022-08-03 07:31] LABS: ANION GAP 15.3 mmol/L (8-16); CALCIUM 8.2 mg/dL (8.4-10.2); CREATININE, SERUM 2.91 mg/dL (0.72-1.25); MAGNESIUM 1.9 MG/DL (1.3-2.1); PHOSPHORUS 3.5 MG/DL (2.3-4.7); POTASSIUM 3.3 mmol/L (3.5-5.1)
[2022-08-03] MEDS ORDERED: DEXTROSE 5%/0.45% SOD CHL 1,000 ML IV ONE (07:45)
[2022-08-03] MEDS ORDERED: POTASSIUM CHLORIDE 20MEQ/100ML 200 ML IV ONE (07:45)
[2022-08-03] MEDS ORDERED: KCL 20 MEQ PACKET/ ORAL SOLN NG SCH (09:00)
[2022-08-03] MEDS: ASPIRIN 81 MG CHEW TAB PO SCH (09:18)
[2022-08-03] MEDS: AMIODARONE HCL 200 MG TAB PO SCH ×2 (09:18→16:45)
[2022-08-03] MEDS: CARBIDOPA/LEVODOPA 25/100 TAB NG SCH ×3 (09:18→20:39)
[2022-08-03] MEDS: ACETAMINOPHEN 325 MG TAB PO PRN (09:36)
[2022-08-03] MEDS ORDERED: MAGNESIUM SULF 1GRAM/DEXTROSE 100 ML IV ONE (10:30)
[2022-08-04] VITALS (19 sets, daily range): BP systolic 112–133; BP diastolic 50–110
[2022-08-04] MEDS: LEVALBUTEROL HCL SOLN NEBU 0.63 MG/3 ML NEB INH SCH ×4 (00:30→19:45)
[2022-08-04 06:57] LABS: BASOPHILS # (AUTO) 0.1 (0.0-0.1); BASOPHILS % 1.5 % (0.0-1.0); EOSINOPHILS # (AUTO) 0.2 (0.0-0.4); EOSINOPHILS % 2.2 % (0.0-6.0); HEMATOCRIT 23.1 % (38.2-49.6); HEMOGLOBIN 7.9 g/dL (14.0-18.0); LYMPHOCYTES # (AUTO) 0.8 (1.0-3.2); LYMPHOCYTES % 12.4 % (18.0-39.1); MEAN CORPUSCULAR HEMOGLOBIN 33.1 pg (28-32); MEAN CORPUSCULAR HGB CONC 34.2 g/dL (31-35); MEAN CORPUSCULAR VOLUME 96.7 fL (81-99); MONOCYTES # (AUTO) 0.6 (0.2-0.8); MONOCYTES % 8.2 % (4.4-11.3); PLATELET COUNT 537 x10e3/uL (140-360); RED BLOOD COUNT 2.39 x10e6/uL (4.3-5.7); RED CELL DISTRIBUTION WIDTH 16.4 % (11.7-14.4)
[2022-08-04 07:17] LABS: ALBUMIN 2.2 g/dL (3.5-5.0); ALBUMIN/GLOBULIN RATIO 0.6 (0.8-2.0); ANION GAP 12.5 mmol/L (8-16); CALCIUM 8.3 mg/dL (8.4-10.2); CREATININE, SERUM 2.33 mg/dL (0.72-1.25); POTASSIUM 3.5 mmol/L (3.5-5.1)
[2022-08-04] MEDS: AMIODARONE HCL 200 MG TAB PO SCH ×2 (08:16→17:36)
[2022-08-04] MEDS: CARBIDOPA/LEVODOPA 25/100 TAB NG SCH ×3 (08:16→21:04)
[2022-08-04] MEDS: ASPIRIN 81 MG CHEW TAB PO SCH (08:17)
[2022-08-05] VITALS (17 sets, daily range): BP systolic 98–140; BP diastolic 51–98
[2022-08-05] MEDS: LEVALBUTEROL HCL SOLN NEBU 0.63 MG/3 ML NEB INH SCH ×3 (01:10→12:30)
[2022-08-05 06:40] LABS: BASOPHILS # (AUTO) 0.1 (0.0-0.1); BASOPHILS % 0.8 % (0.0-1.0); EOSINOPHILS # (AUTO) 0.2 (0.0-0.4); HEMATOCRIT 26.3 % (38.2-49.6); HEMOGLOBIN 8.1 g/dL (14.0-18.0); LYMPHOCYTES # (AUTO) 1.1 (1.0-3.2); LYMPHOCYTES % 13.8 % (18.0-39.1); MEAN CORPUSCULAR HEMOGLOBIN 28.5 pg (28-32); MEAN CORPUSCULAR HGB CONC 30.8 g/dL (31-35); MEAN CORPUSCULAR VOLUME 92.6 fL (81-99); MONOCYTES # (AUTO) 0.6 (0.2-0.8); MONOCYTES % 7.4 % (4.4-11.3); NEUTROPHILS % 75.4 % (38.7-80.0); PLATELET COUNT 487 x10e3/uL (140-360); RED BLOOD COUNT 2.84 x10e6/uL (4.3-5.7); RED CELL DISTRIBUTION WIDTH 16.5 % (11.7-14.4)
[2022-08-05 07:00] LABS: ALBUMIN 2.2 g/dL (3.5-5.0); ALBUMIN/GLOBULIN RATIO 0.6 (0.8-2.0); ANION GAP 12.5 mmol/L (8-16); CALCIUM 8.4 mg/dL (8.4-10.2); CREATININE, SERUM 2.09 mg/dL (0.72-1.25); POTASSIUM 3.5 mmol/L (3.5-5.1)
[2022-08-05] MEDS: CARBIDOPA/LEVODOPA 25/100 TAB NG SCH ×2 (08:41→15:02)
[2022-08-05] MEDS: AMIODARONE HCL 200 MG TAB PO SCH (08:41)
[2022-08-05] MEDS: ASPIRIN 81 MG CHEW TAB PO SCH (08:42)
[2022-08-05] MEDS ORDERED: XOPENEX0.63 MG/3 INH (12:36)
[2022-08-05] MEDS ORDERED: ASPIRIN CHEW81 MG PO (12:36)
[2022-08-05] MEDS ORDERED: AMIODARONE HCL200 MG PO (12:36)
[2022-08-05] MEDS ORDERED: CARBIDOPA-LEVO1 EAC1 NG (12:36)
[2022-08-05] MEDS ORDERED: PROTONIX IV40 MG IV (12:36)
[2022-08-06] MEDS ORDERED: AMIODARONE HCL 200 MG TAB PO SCH (09:00)
== END 2022-08-05 17:28 | DRG 853 ==
LOC: ER 00:20 → OR 06:50 → ERHOLD 06:51 → PACU V 10:09 → ICU 10:48
PROVIDERS: ADMIT Internal Medicine; ATTEND Internal Medicine
PROC: 0DTG0ZZ Resection of Left Large Intestine, Open Approach (ICD-10-PCS; 2022-07-14)
PROC: 3E043XZ Introduction of Vasopressor into Central Vein, Percutaneous Approach (ICD-10-PCS; 2022-07-14)
PROC: 3E04329 Introduction of Other Anti-infective into Central Vein, Percutaneous Approach (ICD-10-PCS; 2022-07-14)
PROC: 5A1955Z Respiratory Ventilation, Greater than 96 Consecutive Hours (ICD-10-PCS; 2022-07-14)
PROC: 0BH17EZ Insertion of Endotracheal Airway into Trachea, Via Natural or Artificial Opening (ICD-10-PCS; 2022-07-14)
PROC: 02HV33Z Insertion of Infusion Device into Superior Vena Cava, Percutaneous Approach (ICD-10-PCS; principal; 2022-07-14 06:39)
PROC: 0D1L0Z4 Bypass Transverse Colon to Cutaneous, Open Approach (ICD-10-PCS; 2022-07-14 06:39)
PROC: 30243M1 Transfusion of Nonautologous Plasma Cryoprecipitate into Central Vein, Percutaneous Approach (ICD-10-PCS; 2022-07-15)
PROC: 02HV33Z Insertion of Infusion Device into Superior Vena Cava, Percutaneous Approach (ICD-10-PCS; 2022-07-16)
PROC: B548ZZA Ultrasonography of Superior Vena Cava, Guidance (ICD-10-PCS; 2022-07-16)
PROC: 30243K1 Transfusion of Nonautologous Frozen Plasma into Central Vein, Percutaneous Approach (ICD-10-PCS; 2022-07-16)
PROC: 30243N1 Transfusion of Nonautologous Red Blood Cells into Central Vein, Percutaneous Approach (ICD-10-PCS; 2022-07-16)
PROC: 30243P1 Transfusion of Nonautologous Frozen Red Cells into Central Vein, Percutaneous Approach (ICD-10-PCS; 2022-07-16)
PROC: 5A1D70Z Performance of Urinary Filtration, Intermittent, Less than 6 Hours Per Day (ICD-10-PCS; 2022-07-16)
PROC: 5A2204Z Restoration of Cardiac Rhythm, Single (ICD-10-PCS; 2022-07-27)
PROC: 02HV33Z Insertion of Infusion Device into Superior Vena Cava, Percutaneous Approach (ICD-10-PCS; 2022-07-28)
PROC: B548ZZA Ultrasonography of Superior Vena Cava, Guidance (ICD-10-PCS; 2022-07-28)
DX: A41.9 Sepsis, unspecified organism (principal); D65 Disseminated intravascular coagulation [defibrination syndrome]; K56.2 Volvulus; R65.21 Severe sepsis with septic shock; N17.0 Acute kidney failure with tubular necrosis; K72.00 Acute and subacute hepatic failure without coma; J69.0 Pneumonitis due to inhalation of food and vomit; G92.8 Other toxic encephalopathy; J96.02 Acute respiratory failure with hypercapnia; J96.01 Acute respiratory failure with hypoxia; M79.A3 Nontraumatic compartment syndrome of abdomen; E44.0 Moderate protein-calorie malnutrition; G20 Parkinson's disease; E78.00 Pure hypercholesterolemia, unspecified; I48.91 Unspecified atrial fibrillation; I25.10 Atherosclerotic heart disease of native coronary artery without angina pectoris; M19.90 Unspecified osteoarthritis, unspecified site; Z95.5 Presence of coronary angioplasty implant and graft; H26.9 Unspecified cataract; K21.9 Gastro-esophageal reflux disease without esophagitis; Z20.822 Contact with and (suspected) exposure to COVID-19; F32.A Depression, unspecified; E78.5 Hyperlipidemia, unspecified; Z98.49 Cataract extraction status, unspecified eye; I25.2 Old myocardial infarction; D63.8 Anemia in other chronic diseases classified elsewhere; I12.9 Hypertensive chronic kidney disease with stage 1 through stage 4 chronic kidney disease, or unspecified chronic kidney disease; N18.9 Chronic kidney disease, unspecified; F02.80 Dementia in other diseases classified elsewhere, unspecified severity, without behavioral disturbance, psychotic disturbance, mood disturbance, and anxiety; E83.39 Other disorders of phosphorus metabolism; B96.4 Proteus (mirabilis) (morganii) as the cause of diseases classified elsewhere; B96.20 Unspecified Escherichia coli [E. coli] as the cause of diseases classified elsewhere; R47.02 Dysphasia; R25.8 Other abnormal involuntary movements; Z68.22 Body mass index [BMI] 22.0-22.9, adult
CPT/HCPCS: 0223U; 36415; 36569; 36600; 43246; 51700; 70450; 70551; 71045; 74019; 74176; 80048; 80053; 80061; 80320; 80329; 81001; 82140; 82150; 82550; 82607; 82805; 82948; 83036; 83605; 83690; 83735; 84100; 84425; 84436; 84443; 84479; 84480; 84481; 85025; 85384; 85610; 85730; 86704; 86706; 86850; 86900; 86920; 87040; 87070; 87186; 87205; 87340; 88304; 88307; 90962; 93005; 93306; 94003; 94640; 94799; 95819; 99251; 99284; J0330; J0360; J0696; J1450; J1644; J1940; J2150; J2250; J2270; J2405; J2543; J3010; J3370; J3430; J3475; J3480; J7030; J7040; J7050; J7070; J7799; P9012; P9016; P9017; P9047; Q9963

== ENCOUNTER 2022-09-26 13:35 | Emergency (ER) | payer MEDICARE ==
[~2022-09-26] VITALS: Ht 172.7 cm; Wt 67.1 kg
[~2022-09-26 13:35] MED LIST changes: +AMIODARONE HCL200 MG PO; +CARBIDOPA-LEVO1 EAC1 NG; +PROTONIX IV40 MG IV; +XOPENEX0.63 MG/3 INH
== END 2022-09-26 14:18 | disposition home or self-care (01) ==
LOC: ER 13:50
DX: Z43.1 Encounter for attention to gastrostomy (principal); I10 Essential (primary) hypertension; G20 Parkinson's disease; E78.5 Hyperlipidemia, unspecified; I25.10 Atherosclerotic heart disease of native coronary artery without angina pectoris; K21.9 Gastro-esophageal reflux disease without esophagitis; F32.A Depression, unspecified; E78.00 Pure hypercholesterolemia, unspecified
CPT/HCPCS: 99282